=== PATIENT | female | born 2005 | race Caucasian/White ===

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

== ENCOUNTER 2024-01-20 15:22 | Emergency (ER) | payer OTHER, SELFPAY ==
[2024-01-20 15:30] VITALS: BP 154/67; PULSE 88; RESP 20; TEMP 37.2; O2SAT 98
--- NOTE | 2024-01-20 15:58 | ED.GENADULT ---
HPI - General Adult General Chief complaint: Ear Stated complaint: Right Ear Source: patient Mode of arrival: ambulatory Limitations: no limitations History of Present Illness HPI narrative: Patient presents for evaluation of right ear pain. Symptom onset about one week ago. Pain was initially mild but significantly worsened today. She has a history of recurrent ear infections and has chronic hearing deficits. She states she was recently treated for otitis externa on the left with otic abx. She states her current symptoms feel different, specifically like otitis media. She denies any fever, chills, nausea, sinus congestion, cough or sore throat. Related Data Allergies Allergy/AdvReac Type Severity Reaction Status Date / Time latex Allergy Rash Verified 01/20/24 15:38 Review of Systems Review of Systems: CONSTITUTIONAL: Denies fever, chills, or sweats. EYES: Denies visual changes, redness, or discharge. ENT: Reports right sided ear pain with chronic bilateral hearing deficits CARDIOVASCULAR: Denies chest pain, palpitations, or edema. RESPIRATORY: Denies cough or dyspnea. GASTROINTESTINAL: Denies abdominal pain, nausea, vomiting, or diarrhea. GENITOURINARY: Denies dysuria or hematuria. SKIN: Denies rash or itching. MUSCULOSKELETAL: Denies back pain, joint pain, or myalgia. NEUROLOGIC: Denies headache, numbness, dizziness, or weakness. PSYCHIATRIC: Denies anxiety or depression. [facility] Past Medical History Medical History ADHD (attention deficit hyperactivity disorder) Anxiety and depression Ear infection Hx of migraines Seasonal allergies Surgical History Surgical History No history of previous surgery Family History Family History Mother Family history non-contributory Other High cholesterol Social History Social History Smoking status: Never smoker Alcohol intake: never Substance use: never Living arrangements: with family Occupation/Education: student Gender identity (if verbalized by the patient): Female Spiritual care concerns: No Exam Narrative: GENERAL: Well-appearing, well-nourished, and in no acute distress. HEAD: Normocephalic, atraumatic. EYES: PERRLA and EOMI. ENT: Nares clear, no rhinorrhea or epistaxis. Mucous membranes moist. Oropharynx without tonsillar hypertrophy exudate or other lesions. Right tympanic membrane is erythematous and there is opacification of the membrane noted. There is also erythema to right ear canal without exudate. NECK: Supple. No adenopathy or masses. No carotid bruits or JVD CHEST: Clear to auscultation. No respiratory distress. No wheezes rales or rhonchi HEART: Regular rate and rhythm. No murmur heard. Normal peripheral pulses. ABDOMEN: Soft, nontender, nondistended, normal active bowel sounds. EXTREMITIES: Normal range of motion. No edema. SKIN: Warm, dry, no rash. NEURO: No focal deficits. Alert and oriented x3. PSYCH: Normal mood and affect. Course Course Emergency Course: This is a 18-year-old female who presented for evaluation of right-sided ear pain. She has evidence of otitis media on exam. Will discharge with Augmentin. She does have some erythema in the right ear canal so will also give her prescription for ofloxacin. She should follow up with primary care and go to the emergency department in the event that she has worsening symptoms. Patient in agreement with plan of care. Level of Care: Express Care Visit Vital Signs Vital signs: Vital Signs Temperature 37.2 C 01/20/24 15:30 Pulse Rate 88 01/20/24 15:30 Respiratory Rate 20 01/20/24 15:30 Blood Pressure 154/67 H 01/20/24 15:30 Pulse Oximetry 98 01/20/24 15:30 Oxygen Delivery Room Air 01/20/24 15:30
== END 2024-01-20 15:53 | disposition home or self-care (01) ==
PROVIDERS: Emergency Provider Nurse Practitioner
DX: H66.91 Otitis media, unspecified, right ear (principal)
CPT/HCPCS: 99213; G0463

== ENCOUNTER 2024-04-08 15:03 | Emergency (ER) | payer OTHER, SELFPAY ==
[2024-04-08 15:17] VITALS: BP 149/77; PULSE 85; RESP 16; TEMP 36.5; O2SAT 100
--- NOTE | 2024-04-08 15:49 | ED.SKABFB ---
HPI - Skin/Abscess/Foreign Bdy General Chief complaint: Skin/Abscess/Foreign Body Stated complaint: bump on back of neck causing pain Time Seen by Provider: 04/08/24 15:49 Source: patient Mode of arrival: ambulatory Limitations: no limitations History of Present Illness HPI narrative: 18 y/o female presented for complaint left ear pain and bump noted to the back of the neck for the past 5 days. States the bumps are fixed and tender, cause pain when she turns her head. also reports subjective fever and chills, and had a migraine for about week which is improved.. Denies ear drainage, tinnitus, dizziness nausea vomiting. Related Data Allergies Allergy/AdvReac Type Severity Reaction Status Date / Time latex Allergy Rash Verified 01/20/24 15:38 Review of Systems Review of Systems: CONSTITUTIONAL: Denies malaise, chills, or fever. EYES: Denies visual changes, redness, or discharge. ENT: Denies rhinorrhea, congestion, sinus pain, and sore throat. Reports ear pain CARDIOVASCULAR: Denies chest pain, palpitations, or edema. RESPIRATORY: Denies cough or dyspnea. GASTROINTESTINAL: Denies abdominal pain, nausea, vomiting, diarrhea SKIN: Denies rash or itching. MUSCULOSKELETAL: Denies myalgia. NEUROLOGIC: Denies headache. All systems reviewed & are unremarkable except as noted in HPI and below PMFSH Past Medical History Medical History ADHD (attention deficit hyperactivity disorder) Anxiety and depression Ear infection Hx of migraines Seasonal allergies Surgical History Surgical History No history of previous surgery Family History Family History Mother Family history non-contributory Other High cholesterol Social History Social History Smoking status: Never smoker Alcohol intake: never Substance use: never Living arrangements: with family Occupation/Education: student Gender identity (if verbalized by the patient): Female Spiritual care concerns: No Comments At time of signature, agree with nursing past medical, surgical, social and family history. There is no relevant family history pertinent to the presenting complaint Exam Narrative: GENERAL: Well-appearing EYES: PERRLA, conjunctivae clear ENT: Nares clear. Mucous membranes moist. right TM pearly hedrick with dull light reflex; Left TM erythematous, bulging and intact; canal not erythematous, no drainage no tragal tenderness. Oropharynx not erythematous without lesions. Tonsils enlarged 1+ without exudate, no drooling, no hoarseness, no trismus, uvula midline. NECK: Supple. full range of motion Left posterior cervical lymphadenopathy CHEST: Clear to auscultation, breath sounds equal. HEART: Regular rate and rhythm. No murmur heard. SKIN: Warm, dry NEURO: Alert and oriented x3. PSYCH: Normal mood and affect Course Course Emergency Course: Patient is aware of diagnosis, understands and agrees to treatment plan. Anticipatory guidance given. Patient agrees to follow-up as directed and is aware of reasons to seek care at the emergency department. Portions of this record may have been created with voice recognition software Level of Care: Express Care Visit Vital Signs Vital signs: Vital Signs Temperature 97.7 F 04/08/24 15:17 Pulse Rate 85 04/08/24 15:17 Respiratory Rate 16 04/08/24 15:17 Blood Pressure 149/77 H 04/08/24 15:17 Pulse Oximetry 100 04/08/24 15:17 Oxygen Delivery Room Air 04/08/24 15:17 Temperature 97.7 F 04/08/24 15:17 Pulse Rate 85 04/08/24 15:17 Respiratory Rate 16 04/08/24 15:17 Blood Pressure 149/77 H 04/08/24 15:17 Pulse Oximetry 100 04/08/24 15:17 Oxygen Delivery Room Air 04/08/24 15:17 Reviewed MDM - Skin/Abscess/Foreign Bdy MDM Narrative
== END 2024-04-08 16:05 | disposition home or self-care (01) ==
PROVIDERS: Emergency Provider Nurse Practitioner Family
DX: R59.1 Generalized enlarged lymph nodes (principal); H66.002 Acute suppurative otitis media without spontaneous rupture of ear drum, left ear
CPT/HCPCS: 99213; G0463

== ENCOUNTER 2024-04-23 19:29 | Emergency (ER) | payer OTHER, SELFPAY ==
--- NOTE | 2024-04-23 19:32 | ED.EAR ---
HPI - Ear Problem General Chief complaint: Ear Stated complaint: Ear pain Source: patient Mode of arrival: ambulatory Limitations: no limitations History of Present Illness HPI Narrative: 18-year-old female presented for complaint of bilateral ear pain for about 3 weeks. Patient was treated for left ear infection on 04/08 with Augmentin, but She denies significant improvement in the pain. Endorses mild right ear pain. States the ears drained 3 days ago. She denies tinnitus, dizziness, nausea vomiting, fevers or chills. Endorses frequent ear infections, states she cannot take Zyrtec due to the fact that she was on it for many consecutive years and is resistant. Patient took ibuprofen, last dose at midnight. MD Complaint: ear pain Related Data Allergies Allergy/AdvReac Type Severity Reaction Status Date / Time latex Allergy Rash Verified 04/23/24 19:40 Review of Systems Review of Systems: CONSTITUTIONAL: Denies malaise, chills, or fever. EYES: Denies visual changes, redness, or discharge. ENT: Denies rhinorrhea, congestion, sinus pain, and sore throat. Reports ear pain CARDIOVASCULAR: Denies chest pain, palpitations, or edema. RESPIRATORY: Denies cough or dyspnea. GASTROINTESTINAL: Denies abdominal pain, nausea, vomiting, diarrhea SKIN: Denies rash or itching. MUSCULOSKELETAL: Denies myalgia. NEUROLOGIC: Denies headache. All systems reviewed & are unremarkable except as noted in HPI and below PMFSH Past Medical History Medical History ADHD (attention deficit hyperactivity disorder) Anxiety and depression Ear infection Hx of migraines Seasonal allergies Surgical History Surgical History No history of previous surgery Family History Family History Mother Family history non-contributory Other High cholesterol Social History Social History Smoking status: Never smoker Alcohol intake: never Substance use: never Living arrangements: with family Occupation/Education: student Gender identity (if verbalized by the patient): Female Spiritual care concerns: No Comments At time of signature, agree with nursing past medical, surgical, social and family history. There is no relevant family history pertinent to the presenting complaint Exam Narrative: GENERAL: Well-appearing EYES: PERRLA, conjunctivae clear ENT: Nares clear. Mucous membranes moist. TMs pearly hedrick with dull light reflex and clear effusion bilaterally; no tragal tenderness. Oropharynx not erythematous without lesions. Tonsils enlarged 1+ and without exudate, no drooling, no hoarseness, no trismus, uvula midline. NECK: Supple. No lymphadenopathy CHEST: Clear to auscultation, breath sounds equal. HEART: Regular rate and rhythm. No murmur heard. SKIN: Warm, dry, no rash. NEURO: Alert and oriented x3. PSYCH: Normal mood and affect Course Course Emergency Course: Patient is aware of diagnosis, understands and agrees to treatment plan. Anticipatory guidance given. Patient agrees to follow-up as directed and is aware of reasons to seek care at the emergency department. Portions of this record may have been created with voice recognition software Level of Care: Express Care Visit Vital Signs Vital signs: Vital Signs Temperature 97.2 F L 04/23/24 19:37 Pulse Rate 89 04/23/24 19:37 Respiratory Rate 20 04/23/24 19:37 Blood Pressure 162/99 H 04/23/24 19:37 Pulse Oximetry 99 04/23/24 19:37 Oxygen Delivery Room Air 04/23/24 19:37 Temperature 97.2 F L 04/23/24 19:40 Pulse Rate 89 04/23/24 19:40 Respiratory Rate 20 04/23/24 19:40 Blood Pressure 162/99 H 04/23/24 19:40 Pulse Oximetry 99 04/23/24 19:40 Oxygen Delivery Room Air 04/23/24 19:40 Reviewed Medical Decis
[2024-04-23 19:37] VITALS: BP 162/99; PULSE 89; RESP 20; TEMP 36.2; O2SAT 99
[2024-04-23 19:40] VITALS: BP 162/99; PULSE 89; RESP 20; TEMP 36.2; O2SAT 99
== END 2024-04-23 19:55 | disposition home or self-care (01) ==
PROVIDERS: Emergency Provider Nurse Practitioner Family
DX: H65.03 Acute serous otitis media, bilateral (principal)
CPT/HCPCS: 99213; G0463

== ENCOUNTER 2024-07-01 13:49 | Emergency (ER) | payer OTHER, SELFPAY ==
[2024-07-01 13:54] VITALS: BP 137/82; PULSE 87; RESP 20; TEMP 36.3; O2SAT 99
--- NOTE | 2024-07-01 14:05 | ED.URI ---
HPI - URI/Sore Throat General Chief Complaint: Upper Respiratory Infection Stated Complaint: Sore Throat/Ear Pain/Headache Source: patient and RN notes reviewed Mode of arrival: ambulatory Limitations: no limitations History of Present Illness HPI Narrative: 18 y/o female presented for c/o sore throat, bilateral ear pain and headache for over one week. Woke this morning with worse throat pain and hoarse voice. Reports fever 101.8 yesterday. Denies sob, wheezing, n/v/d. MD elicited complaint: cough Related Data Allergies Allergy/AdvReac Type Severity Reaction Status Date / Time latex Allergy Rash Verified 07/01/24 14:00 Review of Systems Review of Systems: CONSTITUTIONAL: denies malaise, chills, sweats, fever EYES: Denies visual changes, redness, or discharge ENT: Reports sinus pain, otalgia, sore throat CARDIOVASCULAR: Denies chest pain, palpitations, edema RESPIRATORY: Reports cough, post nasal drainage. Denies dyspnea GASTROINTESTINAL: Denies abdominal pain, nausea, vomiting, diarrhea SKIN: Denies rash or itching MUSCULOSKELETAL: denies myalgia NEUROLOGIC: Denies headache PMFSH Past Medical History Medical History ADHD (attention deficit hyperactivity disorder) Anxiety and depression Ear infection Hx of migraines Seasonal allergies Surgical History Surgical History No history of previous surgery Family History Family History Mother Family history non-contributory Other High cholesterol Social History Social History Smoking status: Never smoker Alcohol intake: never Substance use: never Living arrangements: with family Occupation/Education: student Gender identity (if verbalized by the patient): Female Spiritual care concerns: No Exam Narrative: GENERAL: well-appearing EYES: conjunctivae clear ENT: Mucous membranes moist. bilateral TM erythematous, bulging and intact; canal not erythematous, no drainage no tragal tenderness. mildly hoarse voice. Oropharynx not erythematous without lesions or exudate, no drooling, no trismus, uvula midline. No tripod positioning, muffled voice, soft palate or pharyngeal wall bulging NECK: Supple. No lymphadenopathy CHEST: Clear to auscultation, breath sounds equal. No wheezing, rhonchi, rales, or stridor. No respiratory distress, speaks in full sentences. HEART: Regular rate and rhythm. No murmur heard. SKIN: Warm, dry, no rash. NEURO: Alert and oriented x3. PSYCH: Normal mood and affect Course Course Emergency Course: Patient is aware of diagnosis, understands and agrees to treatment plan. Anticipatory guidance given. Patient agrees to follow-up as directed and is aware of reasons to seek care at the emergency department. Portions of this record may have been created with voice recognition software Level of Care: Express Care Visit Vital Signs Vital signs: Vital Signs Temperature 97.3 F L 07/01/24 13:54 Pulse Rate 87 07/01/24 13:54 Respiratory Rate 20 07/01/24 13:54 Blood Pressure 137/82 07/01/24 13:54 Pulse Oximetry 99 07/01/24 13:54 Oxygen Delivery Room Air 07/01/24 13:54 Temperature 97.3 F L 07/01/24 13:54 Pulse Rate 87 07/01/24 13:54 Respiratory Rate 20 07/01/24 13:54 Blood Pressure 137/82 07/01/24 13:54 Pulse Oximetry 99 07/01/24 13:54 Oxygen Delivery Room Air 07/01/24 13:54 reviewed MDM - URI/Sore Throat MDM Narrative Medical decision making narrative: Discussed physical exam findings. Advised supportive measures and signs/symptoms to go to the ER. Pt is appropriate for outpt treatment and f/u. Differential Diagnosis Differential diagnosis: Likely upper respiratory infection, sinusitis and viral infection Discharge Plan Discharge Clinical Impression:
== END 2024-07-01 14:15 | disposition home or self-care (01) ==
PROVIDERS: Emergency Provider Nurse Practitioner Family
DX: H66.93 Otitis media, unspecified, bilateral (principal)
CPT/HCPCS: 99213; G0463

== ENCOUNTER 2024-08-10 12:12 | Emergency (ER) | payer OTHER, SELFPAY ==
[2024-08-10 12:21] VITALS: BP 158/72; PULSE 77; RESP 16; TEMP 36.6; O2SAT 100
--- NOTE | 2024-08-10 13:19 | ED_ITS ---
HPI - URI/Sore Throat General Chief Complaint: Upper Respiratory Infection Stated Complaint: Ear Pain/Sore Throat Time Seen by Provider: 08/10/24 13:00 Source: patient, RN notes reviewed and old records reviewed Mode of arrival: ambulatory Limitations: no limitations History of Present Illness HPI Narrative: 19 year old female who presents to [facility] care with complaints of bilateral ear pain and cough for the past week with complaints of sore throat for the past 3 days. Patient reports history of chronic ear infection since age 10 has seen ENT in the past . Patient reports that ears are throbbing, denies any drainage from ears or any decreased hearing or tinnitus. Patient reports that she has taken some Ibuprofen for her symptoms and also used cough medication. Patient reports no known fevers MD elicited complaint: cough, sore throat and other (ear pain) Onset (ago): week(s) (1 week ear pain and cough 3 days sore throat) Consistency: constant Pain scale (0-10): 6 Able to tolerate fluids by mouth: Yes Treatments prior to arrival: ibuprofen and other (cough medication) Related Data Allergies Allergy/AdvReac Type Severity Reaction Status Date / Time latex Allergy Unknown Rash Verified 08/10/24 12:48 Review of Systems Review of Systems: CONSTITUTIONAL: Denies malaise, chills, sweats, or fever. EYES: Denies visual changes, redness, or discharge. ENT: Reports rhinorrhea, congestion,no sinus pain,positive for bilateral otalgia and sore throat. CARDIOVASCULAR: Denies chest pain, palpitations, or edema. RESPIRATORY: Reports cough.? Denies dyspnea. GASTROINTESTINAL: Denies abdominal pain, nausea, vomiting, diarrhea SKIN: Denies rash or itching. MUSCULOSKELETAL: Denies myalgia. NEUROLOGIC: Denies headache. All systems reviewed & are unremarkable except as noted in HPI and below PMFSH Past Medical History Medical History (Updated 08/11/24 @ 17:24 by Faby Atkins NP) ADHD (attention deficit hyperactivity disorder) Anxiety and depression Ear infection Endometriosis Hx of migraines Panic disorder Seasonal allergies Surgical History Surgical History No history of previous surgery Family History Family History Mother Family history non-contributory Other High cholesterol Social History Social History Smoking status: Never smoker Alcohol intake: never Substance use: never Living arrangements: with family Occupation/Education: student Gender identity (if verbalized by the patient): Female Spiritual care concerns: No Comments At time of signature, agree with nursing past medical, surgical, social and family history. There is no relevant family history pertinent to the presenting complaint Exam Narrative: GENERAL: Well-appearing, well-nourished, and in no acute distress. HEAD: Normocephalic EYES: PERRLA, conjunctivae clear ENT: Nares clear, turbinates edematous and erythematous, clear discharge. Mucous membranes moist. TM pearly hedrick with dull light reflex bilaterally positive for tragal tenderness, red of bilateral ear canals with no drainage noted.. Oropharynx erythematous without lesions. Tonsils not enlarged and without exudate, no drooling, no hoarseness, no trismus, uvula midline.some post nasal drainage. NECK: Supple. No lymphadenopathy CHEST: Clear to auscultation, breath sounds equal. No wheezing, rhonchi, rales, or stridor. No respiratory distress, speaks in full sentences.SAO2 100% on room air HEART: Regular rate and rhythm. No murmur heard. SKIN: Warm, dry, no rash. NEURO: Alert and oriented x3. PSYCH: Normal mood and affect Course Course Emergency Course: Patient is aware of diagnosis, understands and agrees to treatment plan.? Anticipatory guidance given.? Patient agrees to follow-up as directed and is aware of reasons to seek care at the emergency department. Portions of this record may have been created with voice recognition software Level of Care: Express Care Visit Vital Signs Vital signs: Vital Signs Temperature 36.6 C 08/10/24 12:21 Pulse Rate 77 08/10/24 12:21 Respiratory Rate 16 08/10/24 12:21 Blood Pressure 158/72 H 08/10/24 12:21 Pulse Oximetry 100 08/10/24 12:21 Temperature 36.6 C 08/10/24 12:21 Pulse Rate 77 08/10/24 12:21 Respiratory Rate 16 08/10/24 12:21 Blood Pressure 158/72 H 08/10/24 12:21 Pulse Oximetry 100 08/10/24 12:21 Reviewed MDM - URI/Sore Throat MDM Narrative Medical decision making narrative: Differential diagnosis considered: Lowery virus, strep pharyngitis, allergic rhinitis, upper respiratory tract infection, sinusitis, rhinosinusitis, nasopharyngitis. viral pharyngitis, otitis media, otitis externa, pneumonia, bronchitis, viral cough syndrome, viral syndrome, and influenza.? Exam findings show no acute concerns or changes; patient is non-toxic appearing and is in no distress.? Patient is appropriate for outpatient treatment and follow-up. Differential Diagnosis Differential diagnosis: Likely upper respiratory infection, otitis media, pharyngitis and other (strep pharyngitis, otitis externa) Medical Records Attestation: I reviewed the patient's medical records. Lab Data Attestation: I reviewed the patient's lab results. Lab results narrative: strep screen negative culture sent Labs: Lab Results 08/10/24 Range/Units 13:23 POC Grp A Strep Screen Negative (Negative) Critical Care Time Critical Care Time Critical Care Time: No Discharge Plan Discharge Clinical Impression: Otitis externa Patient Disposition: Home, Self-Care Condition: Stable Instructions: Pharyngitis (ED), Swimmer's Ear (ED) Additional Instructions: Increase fluids especially juices and water [id number] cough and cold medicine of your choice for your symptoms Tylenol or ibuprofen for any fever pain Zyrtec Claritin or [place] daily Ear drops as prescribed complete all doses heat to the face 20-30 minutes 4-6 times a day for pain Salt water gargles, throat lozenges or throat sprays as desired Your strep test today was negative. A throat culture will be sent to the laboratory for further testing. IF the test is positive, you will receive a phone call within 48 hours and an appropriate antibiotic will be initiated at that time. If your symptoms persist, change or worsen significantly before you can contact your personal physician then please, without delay, go to the emergency department for further evaluation. Follow-up with PCP in 7-10 days or sooner if needed Follow up with PCP soon in regards to your blood pressure which is elevated above threshold for referral. Blood pressure above 120/80 may indicate pre- hypertension. 158/72 Prescriptions: New ofloxacin 0.3 % drops 5 drp EACH EAR Q12H 7 Days Qty: 10 0RF Follow-up/Referrals: PHYSICIAN,ST[employer] YIELD ENGINEER [Primary Care Provider] - Time of Disposition: 13:24 Quality Claire Coma Scale Eyes: Open Verbal: Oriented and Alert Motor: Follows Commands Claire Coma Total Score: 15
[2024-08-10 13:24] LABS: EDSTREPNEGPOS1 Negative (Negative)
== END 2024-08-10 13:25 | disposition home or self-care (01) ==
PROVIDERS: Emergency Provider Registered Nurse
DX: H60.93 Unspecified otitis externa, bilateral (principal); N80.9 Endometriosis, unspecified
CPT/HCPCS: 87081; 87880; 99213; G0463

== ENCOUNTER 2024-09-03 15:38 | Emergency (ER) | payer OTHER, SELFPAY ==
[2024-09-03 15:59] VITALS: BP 146/73; PULSE 82; RESP 19; TEMP 36.6; O2SAT 96
--- NOTE | 2024-09-03 16:05 | ED_ITS ---
HPI - URI/Sore Throat General Chief Complaint: Upper Respiratory Infection Stated Complaint: Ear Pain/Sinus Pain Time Seen by Provider: 09/03/24 16:05 Source: patient, RN notes reviewed and old records reviewed Mode of arrival: ambulatory Limitations: no limitations History of Present Illness HPI Narrative: 19-year-old female to Express Care with complaint left ear pain for 10 days. Patient endorses chronic history both inner and outer ear infections. Patient states that she saw an ENT many years ago and had a negative experience so did not return. Patient denies fever, drainage from ear, headache, decreased hearing, Q-tip use. Patient resting comfortably in exam room in no acute distress. Related Data Allergies Allergy/AdvReac Type Severity Reaction Status Date / Time latex Allergy Unknown Rash Verified 09/03/24 15:51 Review of Systems Review of Systems: All systems reviewed & are unremarkable except as noted in HPI and below Constitutional: Constitutional: Reports no additional constitutional complai nts Eyes: Eyes: Reports no additional eye complaints ENT: Reports as per HPI and Reports otalgia ( Left) Cardiovascular: Cardiovascular: Reports no additional cardiovascular complaints, Denies chest pain and Denies dyspnea Respiratory: Respiratory: Reports no additional respiratory complaints, Denies cough and Denies dyspnea Musculoskeletal: Musculoskeletal: Reports no additional musculoskeletal complaints Neurologic: Reports system reviewed and no additional complaints, except as documented Psychiatric: Psychiatric: Reports no additional psychiatric complaints PMFSH Past Medical History Medical History ADHD (attention deficit hyperactivity disorder) Anxiety and depression Ear infection Endometriosis Hx of migraines Panic disorder Seasonal allergies Surgical History Surgical History No history of previous surgery Family History Family History Mother Family history non-contributory Other High cholesterol Social History Social History Smoking status: Never smoker Alcohol intake: never Substance use: never Living arrangements: with family Occupation/Education: student Gender identity (if verbalized by the patient): Female Spiritual care concerns: No Comments At the time of my signature, I reviewed and agree with the nursing past medical, surgical, social, and family history. There is no relevant family history pertinent to the patient complaint. Exam Const: General: cooperative, comfortable, no acute distress, alert, well groomed, well nourished and obese Nutritional Appearance: well nourished Orientation/consciousness: patient oriented x3 Limitations: no limitations HENMT: Head: normal to inspection Ears: external ears normal and Abnormal EAC present erythema bilateral, edema bilateral and EAC tenderness bilateral Face/Nose/Sinus: Normal external nose present, Normal nares present, normal facial exam, No erythema and No edema Face and sinus: normal facial exam, no erythema and no edema Mouth: Yes Normal oral and palatal mucosa present Eyes: General: appearance normal, both eyes and all related structures Neck: Neck: normal visual inspection, full ROM and no meningeal signs Lymphatic: no lymphadenopathy noted and no lymphedema noted Chest: Chest palpation & inspection: normal inspection of the chest Resp: Effort & Inspection: normal respiratory effort and able to speak in complete sentences Auscultation: clear to auscultation bilaterally Cardio: Jugular venous distension: no JVD Rate: regular rate Rhythm: regular rhythm Back/Spine/Pelvis: Cervical Spine: cervical ROM normal Skin: General skin exam: normal color, no rashes or lesions noted and turgor normal Neuro: General: patient oriented x3, gait normal, moves all extremities and no meningeal signs Speech: normal speech Gait exam (Neuro): Normal gait present Extrem: General: normal to inspection, full ROM and capillary refill normal Psych: Appearance: grossly normal and well kempt Course Course Emergency Course: Some parts of this dictation were generated by voice recognition software and may contain typographical and/or grammatical inaccuracies. Level of Care: Express Care Visit Vital Signs Vital signs: Vital Signs Temperature 36.6 C 09/03/24 15:59 Pulse Rate 82 09/03/24 15:59 Respiratory Rate 09/03/24 15:59 Blood Pressure 146/73 H 09/03/24 15:59 Pulse Oximetry 96 09/03/24 15:59 Oxygen Delivery Room Air 09/03/24 15:59 Temperature 36.6 C 09/03/24 15:59 Pulse Rate 82 09/03/24 15:59 Respiratory Rate 09/03/24 15:59 Blood Pressure 146/73 H 09/03/24 15:59 Pulse Oximetry 96 09/03/24 15:59 Oxygen Delivery Room Air 09/03/24 15:59 reviewed MDM - URI/Sore Throat MDM Narrative Medical decision making narrative: 19-year-old female to Express Care with complaint left ear pain for 10 days. Patient endorses chronic history both inner and outer ear infections. Patient states that she saw an ENT many years ago and had a negative experience so did not return. Patient denies fever, drainage from ear, headache, decreased hearing, Q-tip use. Patient resting comfortably in exam room in no acute distress. on exam, bilateral EAC tenderness, erythema, edema. Consistent with bilateral otitis externa. Extensive conversation with patient regarding importance of following up with ENT. Referral given. Patient is sitting comfortably in exam room nontoxic in appearance. Patient appropriate for outpatient treatment and follow-up. Discharge instructions reviewed with patient, as well as provided in writing per nursing staff. The instructions also include specific and strict return/GO TO THE ER as well as f/u information. All questions have been answered, and the patient deny any further questions with discharge and discharge plan. Some parts of this dictation were generated by voice recognition software and may contain typographical and/or grammatical inaccuracies. Differential Diagnosis Differential diagnosis: Likely upper respiratory infection, croup, otitis media, sinusitis, viral infection, bronchitis, influenza and pharyngitis Discharge Plan Discharge Clinical Impression: Bilateral otitis externa Patient Disposition: Home, Self-Care Condition: Stable Instructions: Antibiotic Form Additional Instructions: Please finish entire course of antibiotic treatment. Please use attached referral information to follow up with ENT -Alternate Tylenol and Motrin per package directions for fever or pain. -Antihistamine medication such as Benadryl at night and Zyrtec/Claritin/[place] during the day can help improve symptoms. -Use Flonase twice a day for 5 days then daily to help reduce the inflammation and dry up your sinuses. -You can also use Sudafed or Mucinex. Be sure to drink plenty of water with these medications at least 8 ounces with every dose and it is important to drink 8 to 10 glasses of water per day. Water is a natural decongestant -Eat and drink things that are easy to swallow, like tea or soup, or popsicles. -Oral rinses such as: Salt water gargles and/or may use topical anesthetic (eg. Chloraseptic spray) or lozenges to relieve dryness or throat pain). -Frequent hand washing or hand roofing sales representative is one of the best ways to prevent spread of infection. -Using a vaporizer or humidifier at night will also help thin secretions and help with coughing up phlegm. -Follow up with primary care provider in 2-3 days if condition is not improving; or seek ER visit if you have trouble breathing, cannot drink enough fluids, have muffled voice, difficulty opening your mouth, or severe swelling. Prescriptions: New amoxicillin 875 mg tablet 875 mg PO Q12H Qty: 20 0RF fluconazole [Diflucan] 100 mg tablet 100 mg PO DAILY Qty: 2 0RF ciprofloxacin-dexamethasone 0.3-0.1 % drops,suspension 4 drp EACH EAR Q12H 7 Days Qty: 7.5 0RF No Action ofloxacin 0.3 % drops 5 drp EACH EAR Q12H 7 Days Qty: 10 0RF Follow-up/Referrals: John Martines MD [Physician] - PHYSICIAN,[facility] [employer] [facility] [Primary Care Provider] - Stand Alone Forms: Work/School Release IP
== END 2024-09-03 16:24 | disposition home or self-care (01) ==
PROVIDERS: Emergency Provider Nurse Practitioner Family
DX: H60.93 Unspecified otitis externa, bilateral (principal)
CPT/HCPCS: 99213; G0463

== ENCOUNTER 2024-11-06 15:57 | Emergency (ER) | payer OTHER, SELFPAY ==
[2024-11-06 16:03] VITALS: BP 151/81; PULSE 99; RESP 16; TEMP 36.6; O2SAT 100
--- NOTE | 2024-11-06 16:55 | ED_ITS ---
HPI - General Adult General Chief complaint: Upper Respiratory Infection Stated complaint: Ear Pain/Sinus Pain Source: patient and family Mode of arrival: ambulatory Limitations: no limitations History of Present Illness HPI narrative: Patient presents for evaluation of bilateral ear pain for last 5 days. She has a history of otitis media and otitis externa. She has not been on abx as of late per her reports. She has some chronic hearing loss, not worse as of late. She reports a small amount of drainage from right ear. No fever, chills, nausea, vomiting, sore throat, cough, shortness of breath. No recent sick contacts to her knowledge. Related Data Home Medications ?Medication ?Instructions ?Recorded ?Confirmed ?Last Taken ?Type drospirenone (contraceptive) 4 mg 4 mg PO DAILY 11/06/24 Unknown History (28) tablet (Slynd) Allergies Allergy/AdvReac Type Severity Reaction Status Date / Time latex Allergy Unknown Rash Verified 11/06/24 16:37 Review of Systems Review of Systems: CONSTITUTIONAL: Denies fever, chills, or sweats. EYES: Denies visual changes, redness, or discharge. ENT: Reports chronic hearing loss, not worse as of late. Reports bilateral ear pain and a small amount of drainage from the right ear. Denies sore throat CARDIOVASCULAR: Denies chest pain, palpitations, or edema. RESPIRATORY: Denies cough or dyspnea. GASTROINTESTINAL: Denies abdominal pain, nausea, vomiting, or diarrhea. GENITOURINARY: Denies dysuria or hematuria. SKIN: Denies rash or itching. MUSCULOSKELETAL: Denies back pain, joint pain, or myalgia. NEUROLOGIC: Denies headache, numbness, dizziness, or weakness. PSYCHIATRIC: Denies anxiety or depression. [facility] Past Medical History Medical History Endometriosis Panic disorder Anxiety and depression ADHD (attention deficit hyperactivity disorder) Hx of migraines Ear infection Seasonal allergies Surgical History Surgical History No history of previous surgery Family History Family History Mother Family history non-contributory Other High cholesterol Social History Social History (Reviewed 11/06/24 @ 17:01 by Sharan Zimmerman, [facility], [place] Smoking status: Never smoker Alcohol intake: never Substance use: never Living arrangements: with family Occupation/Education: student Gender identity (if verbalized by the patient): Female Spiritual care concerns: No Exam Narrative: GENERAL: Well-appearing, well-nourished, and in no acute distress. HEAD: Normocephalic, atraumatic. EYES: PERRLA and EOMI. ENT: Nares clear, no rhinorrhea or epistaxis. Mucous membranes moist. Oropharynx without tonsillar hypertrophy exudate or other lesions. Bilateral ear canals are erythematous. Bilateral tympanic membrane erythema. Tympanic membranes are intact bilaterally NECK: Supple. No adenopathy or masses. No carotid bruits or JVD CHEST: Clear to auscultation. No respiratory distress. No wheezes rales or rhonchi HEART: Regular rate and rhythm. No murmur heard. Normal peripheral pulses. ABDOMEN: Soft, nontender, nondistended, normal active bowel sounds. EXTREMITIES: Normal range of motion. No edema. SKIN: Warm, dry, no rash. NEURO: No focal deficits. Alert and oriented x3. PSYCH: Normal mood and affect. Course Course Emergency Course: This is a 19-year-old female who presented for evaluation of bilateral ear pain. She has evidence of otitis media and externa on exam. Will treat with cefdinir and ofloxacin. She requested a prescription for Diflucan after her antibiotics. Increase hydration. [id number] agents for symptom management. Follow up with primary provider. Go to the ER for worsening symptoms. Patient in agreement with plan of care. Level of Care: Express Care Visit Vital Signs Vital signs: Vital Signs Temperature 36.6 C 11/06/24 16:03 Pulse Rate 99 11/06/24 16:03 Respiratory Rate 16 11/06/24 16:03 Blood Pressure 151/81 H 11/06/24 16:03 Pulse Oximetry 100 11/06/24 16:03 Oxygen Delivery Room Air 11/06/24 16:03 Temperature 36.6 C 11/06/24 16:03 Pulse Rate 99 11/06/24 16:03 Respiratory Rate 16 11/06/24 16:03 Blood Pressure 151/81 H 11/06/24 16:03 Pulse Oximetry 100 11/06/24 16:03 Oxygen Delivery Room Air 11/06/24 16:03 Medical Decision Making Vital Signs Vital Signs: Vital Signs Temperature 36.6 C 11/06/24 16:03 Pulse Rate 99 11/06/24 16:03 Respiratory Rate 16 11/06/24 16:03 Blood Pressure 151/81 H 11/06/24 16:03 Pulse Oximetry 100 11/06/24 16:03 Oxygen Delivery Room Air 11/06/24 16:03 Temperature 36.6 C 11/06/24 16:03 Pulse Rate 99 11/06/24 16:03 Respiratory Rate 16 11/06/24 16:03 Blood Pressure 151/81 H 11/06/24 16:03 Pulse Oximetry 100 11/06/24 16:03 Oxygen Delivery Room Air 11/06/24 16:03 Discharge Plan Discharge Clinical Impression: Bilateral otitis media, Bilateral otitis externa Patient Disposition: Home, Self-Care Condition: Stable Instructions: Antibiotic Form, Ear Infection (ED) Patient Language: Romansh Prescriptions: New cefdinir 300 mg capsule 300 mg PO Q12H Qty: 20 0RF ofloxacin 0.3 % drops 10 drp EACH EAR DAILY 7 Days Qty: 10 0RF fluconazole 150 mg tablet 150 mg PO ONCE Qty: 1 0RF Rx Instructions: as a single dose No Action Slynd 4 mg (28) tablet 4 mg PO DAILY Follow-up/Referrals: Penny Obrien DO [Physician] - Time of Disposition: 16:54
--- OUTSIDE RECORDS SUMMARY | 2024-11-08 03:08 | XMS_ITS | Encounter Summary ---
Author Organization [facility] Address [address] [place] [address] Phone Care Team Providers Care Digital Print Operator Name Role Phone Coleman Frank MD Primary Care Provider + [phone] Amy, Physician Primary Care Provider [phone] Coleman Frank MD Primary Care Provider + [phone] Kelsey Soria MD Primary Care Provider + [phone] No, Physician Primary Care Provider [phone] Encounter Details Date Type Department Care Team (Late st Contact Info) Description 06/23/2017 Orders Only [facility] [address] [place] [address] Coleman Frank MD [address] [address] [place] [id number] Elevated hemoglobin A1c (Primary Dx); Obesity peds (BMI >=95 percentile) Social History Tobacco Use Types Packs/Day Years Used Date Smoking Tobacco: Smoker, Current Status Unknown Alcohol Use Standard Drinks/Week Comments No 0 (1 standard drink = 0.6 oz pur e alcohol) Comments Unknown Sex and Gender Information Value Date Recorded Sex Assigned at Not on file Legal Sex Female 11:54 AM RECORDIST CHIEF Gender Identity Not on file Sexual Orientation Not on file documented as of this encounter Plan of Treatment Not on file documented as of this encounter Visit Diagnoses Diagnosis Elevated hemoglobin A1c- Primary Other abnormal blood chemistry Obesity peds (BMI >=95 percentile) documented in this encounter Additional Health Concerns Infection Onset Date Last Indicated Resolved Time COVID: Suspected 2021 2021 2021 8:29 AM CDT COVID: Suspected 2021 2021 07/18/2021 5:52 AM CDT documented as of this encounter Care Teams Digital Print Operator Relationship Specialty Start Date End Date Coleman Frank MD [address] [place] [id number] PCP - General 01/13/17 03/17/20 Amy, Physician PCP - General 03/18/20 10/26/21 Coleman Frank MD [address] [place] [id number] PCP - General 10/27/21 03/17/22 Kelsey Soria MD PCP - General Family Practice 03/18/22 09/02/23 Amy, Physician PCP - General 09/03/23 documented as of this encounter
--- OUTSIDE RECORDS SUMMARY | 2024-11-08 03:08 | XMS_ITS | Referral Summary ---
Author Organization [facility] [address] Address [address] [place] [address] Phone Care Team Providers Care Car Pincher Name Role Phone No, Physician Primary Care Provider [phone] Encounters Date Type Department Care Team Description 10/29/2024 Orders Only [facility] [address] [place] [address] Floor [address] [place] [phone] Ria Edwards RN 10/25/2024 10:15 AM PILE DRIVER Office Visit [facility] [address] [place] [address] Floor [address] [place] [phone] Galina Ding MD Endometriosis (Primary Dx); Irregular periods; Pelvic and perineal pain 09/09/2024 1:08 PM PILE DRIVER - 09/09/2024 8:28 PM PILE DRIVER Emergency [facility] [place] [address] Jeannette Hall MD Anderson, Anne Marie, MD Endometriosis (Primary Dx) Discharge Disposition: Discharge to home or self care from Last 3 Months Allergies Active Allergy Reactions Criticality Noted Date Comments Chlorine Hives Medium 06/08/2022 Latex Rash Medium 06/08/2022 [place] Butter Hives Medium 06/08/2022 Medications fluticasone propionate (FLONASE) 50 mcg/actuation nasal spray Administer 2 sprays into each nostril daily 3 each 4 06/10/20 22 Active Additional Information Patient not taking.Reported on 08/16/2022 cetirizine (ZyrTEC) 10 mg tablet Take 1 tablet (10 mg total) by mouth daily 30 tablet 03/25/20 22 Active Additional Information Patient not taking.Reported on 08/16/2022 ciprofloxacin-dex AMETHasone (CIPRODEX) otic suspensionIndicat ions:Acute otitis externa of left ear, unspecified type Administer 4 drops into the left ear 2 (two) times a day 7.5 mL 06/08/20 22 Active Additional Information Patient not taking.Reported on 08/16/2022 clotrimazole 1 % cream Apply topically 2 (two) times a day 30 g 09/04/20 23 Active drospirenone, contraceptive, (SLYND) tablet tablet Take 1 each (4 mg total) by mouth daily 84 tablet 3 10/29/19 25 Active norethindrone (MICRONOR) 0.35 mg tabletIndications : Contraception Take 1 tablet (0.35 mg total) by mouth daily 28 tablet 12 07/01/20 22 025 Discontin ued(Thera py completed ) drospirenone, contraceptive, (SLYND) tablet tablet Take 1 each (4 mg total) by mouth daily 84 tablet 3 10/25/19 25 025 Discontin ued(Reord er) Active Problems Problem Noted Date Diagnosed Date Annual physical exam 08/16/2022 Assessment & Plan (08/16/2022 2:30 PM CDT): Doing well. BMI:52.9 (Obese) Routine labs ordered - Up to date Preventative Screening Due: None Dietary and exercise recommendations given today. Recommend exercise at least 30 minutes moderate to vigorous exercise and some strength training most days of the week. (minimum 150 minutes weekly) Discussed recommendations and increasing fruits and vegetables Vaccines due - HPV and influenza vacc recommended RTC annually for f/u Essential hypertension 08/16/2022 Assessment & Plan (08/16/2022 2:33 PM CDT): Mildly elevated again in office today. Goal <130/80. - recommend starting medication for hypertension. Chlorthalidone 12.5 mg p.o. daily. Risks benefits and alternatives discussed. Patient declined starting medication at this time. States she has a fear of blood pressure medication as her brother secondary to interaction with blood pressure medication and a med that was given while he was hospitalized. Additional counseling provided discussing long-term benefits of treating hypertension in addition to the potential risks of it going untreated. Patient still declined starting blood pressure medication -will continue low salt diet and work on weight loss. Will continue to monitor this intermittently at follow-up RTC 3 months Class 3 severe obesity with serious comorbidity and body mass index (BMI) of 50.0 to 59.9 in adult 08/16/2022 Hypertriglyceridemia 06/28/2022 Assessment & Plan (06/28/2022 5:55 PM CDT): Mildly elevated. Discussed with patient today. Counseled on diet/exercise. Will monitor routinely Referred otalgia of both ears 06/24/2022 Assessment & Plan (06/24/2022 3:19 PM CDT): TMJ dysfunction discussed and handout provided Dental contact provided Sensorineural hearing loss (SNHL) of both ears 0 06/24/2022 Assessment & Plan (06/24/2022 3:19 PM CDT): Hearing test at [facility] Acute otitis externa of left ear 06/08/2022 Assessment & Plan (06/08/2022 4:08 PM CDT): Presents c/o bilateral ear pain worse over the last 3 days. No hearing changes or sinus issues. Has appointment with ENT on 06/24/22 for chronic ear pain. Has not been using Flonase as directed. Small erythematous swollen area to bottom of Left EAC, exam otherwise unremarkable. Rxd Ciprodex drops as directed. Continue Flonase. Encouraged to clean ear buds with rubbing alcohol frequently. Keep follow up with ENT. Call with any changes or concerns. Ear pain, bilateral 03/18/2022 Assessment & Plan (06/24/2022 3:19 PM CDT): Suspect referred otalgia TMJ dysfunction discussed and handout provided Dental contact provided Assessment & Plan (03/18/2022 1:12 PM CDT): Recurrent. Records requested from outside facility. -restart Flonase and Zyrtec daily -refer to ENT Menorrhagia with regular cycle 03/18/2022 Assessment & Plan (03/18/2022 1:30 PM CDT): - Discussed using a scheduled NSAID 1-2 days prior to started menses and monitoring for improvement in pain and heaviness in menses over time -also discussed the possibility of using oral contraception to help with menorrhagia. Patient may need pelvic ultrasound to eval for uterine fibroids, thicken endometrium etc -will referred to jewel blocker and sawyer for evaluation and treatment Elevated blood-pressure read ing without diagnosis of hypertension 03/18/2022 Assessment & Plan (06/28/2022 5:57 PM CDT): Minimally elevated in office today.(also noted one other time) Goal <130/80. Will continue to monitor. - Continue low salt diet and work on weight loss. Assessment & Plan (03/18/2022 1:10 PM CDT): Mildly elevated in office today. No hx of HTN - Start DASH diet. - Home BP monitoring x2-4 weeks - Continue to work on weight loss - F/u with home BP cuff in 4 weeks for re-eval Non-recurrent acute serous otitis media of both ears 10/22/2021 Slow transit constipation 06/06/2018 Dysfunction of both eustachian tubes 01/01/2018 Viral upper respiratory tract infection 09/15/20 17 Left ear pain 09/15/2017 Post traumatic stress disorder (PTSD) 09/12/2017 Dysfunction of right eustachian tube 07/18/2017 Intractable migraine without aura and without status migrainosus 06/23/2017 Overview (06/23/2017): 03-06-16 [facility] ER (lips & fingers numb) ibuprofen, 06-23-17 occurring more freq 3- 4x/week - FERNANDEZ diary and f/u 4 weeks Healthcare maintenance 06/23/2017 Overview (06/23/2017): 12/21/16 TSH 2.8, A1C 5.9, Chol 206, Trig 165, LDL 134 Otitis media 01/05/2017 Overview (03/10/2017): Otitis media Adiposity 12/21/2016 Overview (03/10/2017): Obesity Resolved Problems Problem Noted Date Diagnosed Date Resolved Date Class 3 severe obesity witho ut serious comorbidity with body mass index (BMI) of 50.0 to 59.9 in adult 06/28/2022 08/16/2022 Assessment & Plan (06/28/2022 5:54 PM CDT): BMI:53.9 (Obese) Dietary and exercise recommendations given today. Recommend exercise at least 30 minutes moderate to vigorous exercise and some strength training most days of the week. (minimum 150 minutes weekly) Immunizations Name Administration Dates Next Due DTaP 06/30/2009, 8,08/11/2006,12/01 DTaP / Hep B / IPV 07/07/2008,08/11/2006, 005 DTaP / IPV 06/30/2009 Hep A, Ped Unspecified 07/07/2008,08/11/2006 Hep A, Pediatric 07/07/2008,08/11/2006 Hep B, Adolescent or Pediatric 8,08/11/2006,2004,07/17 HiB 08/11/2006,2004 Hib (PRP-T) 2004 IPV 07/07/2008,08/11/2006,2004 MMR 06/30/2009,08/11/2006 MMRV 08/11/2006 Meningococcal A,C,W,Y-TT (Ak a Menquadfi) 07/25/2022 Meningococcal MCV4P (Menactra) 07/06/2016 Pneumococcal Conjugate 7-Valent 08/11/2006,12/01 Tdap 07/06/2016 Varicella 06/30/2009,08/11/2006 Social History Tobacco Use Types Packs/Day Years Used Date Smoking Tobacco: Never Smokeless Tobacco: Never Tobacco Cessation:Counseling Given: Not Answered Alcohol Use Standard Drinks/Week Comments No 0 (1 standard drink = 0.6 oz pur e alcohol) AUDIT-C Answer Date Recorded Q1: How often do you have a drink containing alc ohol? Never 08/16/2022 Average Number of Drinks Not on file 022 Frequency of Binge Drinking Not on file 10/2021 PHQ-2 Answer Date Recorded PHQ-2 Total Score (If total score is 3 or more points, staff should administer the PHQ-9) 0 08/16/2022 Hunger Vital Sign Answer Date Recorded Within the past 12 months, y ou worried that your food would run out before you got the money to buy more. Never true 10/25/19 25 Within the past 12 months, t he food you bought just didn't last and you didn't have money to get more. Never true 10/25/2024 Personal Safety Answer Date Recorded Have you ever been in or are you currently in a harmful physical or emotional relationship or is someone making you feel afraid or unsafe? Denies 09/09/2024 Comments No Sex and Gender Information Value Date Recorded Sex Assigned at Not on file Legal Sex Female 11:54 AM PILE DRIVER Gender Identity Not on file Sexual Orientation Not on file Last Filed Vital Signs Vital Sign Reading Time Taken Comments Blood Pressure 156/81 10/25/2024 9:42 AM PILE DRIVER Pulse 99 10/25/2024 9:42 AM PILE DRIVER Temperature 36.5 ??C (97.7 ??F) 09/09/2024 8:26 PM CS T Respiratory Rate 18 10/25/2024 9:42 AM PILE DRIVER Oxygen Saturation 100% 10/25/2024 9:42 AM PILE DRIVER Inhaled Oxygen Concentration - - Weight 142.9 kg (315 lb) 10/25/2024 9:42 AM PILE DRIVER Height 160 cm (5' 3 ) 10/25/2024 9:42 AM PILE DRIVER Body Mass Index 55.8 10/25/2024 9:42 AM PILE DRIVER Plan of Treatment Not on file Procedures Procedure Name Priority Date/Time Associated Diagnosis Comments THYROID FUNCTION CASCADE Routine 10/25/2024 10:56 AM PILE DRIVER Irregular periods CT ABDOMEN PELVIS W CONTRAST ED 09/09/2024 6:11 PM PILE DRIVER EGFR STAT 09/09/2024 4:23 PM PILE DRIVER DIFFERENTIAL AUTO STAT 09/09/2024 4:2 3 PM PILE DRIVER LIPASE STAT 09/09/2024 4:23 PM PILE DRIVER CBC WITH AUTO DIFFERENTIAL STAT 09/09/2024 4:23 PM PILE DRIVER COMPREHENSIVE METABOLIC PANEL STAT 09/09/2024 4:23 PM PILE DRIVER TRICHOMONAS VAGINALIS PCR STAT 09/09/2024 4:23 PM PILE DRIVER N. GONORRHOEAE/C. TRACHOMATIS AMPLIFICATION STAT 09/09/2024 4:23 PM PILE DRIVER URINALYSIS, MICROSCOPIC ONLY STAT 09/09/2024 3:44 PM PILE DRIVER HCG, URINE, QUALITATIVE STAT 09/09/2024 3:44 PM PILE DRIVER URINALYSIS AND REFLEX TO MICROSCOPIC AND CULTURE STAT 09/09/2024 3:44 PM PILE DRIVER US PELVIS AND OVARIAN DOPPLER LIMITED (C) ED 09/09/2024 3:08 PM PILE DRIVER from Last 3 Months Results * Thyroid Function [place] (10/25/2024 10:56 AM PILE DRIVER) TSH 2.98 0.30 - 4.20 mcIUnit/mL Blood 10/25/2024 10:5 6 AM PILE DRIVER 10/25/2024 11:41 AM PILE DRIVER us Galina Ding MD LAB BLOOD ORDERABLES Yudelka l Result [facility] [place] [address] * CT Abdomen Pelvis W Contrast (09/09/2024 6:11 PM PILE DRIVER) Anatomical Region Laterality Modality Body N/A Computed Tomogra phy 09/09/2024 7:57 PM PILE DRIVER Impressions 09/10/2024 9:52 AM PILE DRIVER 1. ??No CT findings to explain the patient's right lower quadrant abdominal pain. Dictated by: Olga Hoyt MD, PhD. The radiology attending physician has personally reviewed this study, and had reviewed and/or edited this written report and agrees with it. Electronically signed by: Judy Isidro M.D. Narrative 09/10/2024 9:52 AM PILE DRIVER EXAMINATION: ??CT ABDOMEN PELVIS W CONTRAST HISTORY: 19-year-old female with history of endometriosis presenting with acute right lower quadrant pain. Age: 19 years Gender: Female TECHNIQUE: Computed tomography (CT) of the abdomen and pelvis was performed after the uneventful administration of 100 mL of Optiray-320 intravenous contrast. Oral contrast was not administered prior to imaging. COMPARISON: Comparison is made with same day pelvic ultrasound from 3:00 PM.. FINDINGS: There is no pulmonary consolidation, mass, or edema in the lung bases. ??No pleural effusion or pneumothorax. The imaged heart size is normal. ??There is no pericardial effusion. The hepatic parenchyma is normal without focal lesion. ??There is no intrahepatic or extrahepatic biliary ductal dilation. ??The gallbladder is unremarkable. ??The portal, splenic, and superior mesenteric veins are patent. The spleen, pancreas, and adrenal glands are normal. ??Splenules in the left upper quadrant. The kidneys enhance symmetrically. ??There is no hydronephrosis or obstructive nephrolithiasis. ??The urinary bladder is normal. ??The uterus is normal. ??No suspicious adnexal lesions. ??Trace ascites in the pelvis. ??No pneumoperitoneum. ??No suspicious lymphadenopathy in the abdomen or pelvis. The stomach, duodenum, and small bowel are unremarkable. ??There is no bowel wall thickening or obstruction. ??The appendix appears normal with intraluminal air. Gas and stool throughout the colon. No suspicious osseous lesions. ??The course and caliber of the abdominal aorta is normal. Procedure Note Judy Isidro MD - 09/10/2024 EXAMINATION: CT ABDOMEN PELVIS W CONTRAST HISTORY: 19-year-old female with history of endometriosis presenting with acute right lower quadrant pain. Age: 19 years Gender: Female TECHNIQUE: Computed tomography (CT) of the abdomen and pelvis was performed after the uneventful administration of 100 mL of Optiray-320 intravenous contrast. Oral contrast was not administered prior to imaging. COMPARISON: Comparison is made with same day pelvic ultrasound from 3:00 PM.. FINDINGS: There is no pulmonary consolidation, mass, or edema in the lung bases. No pleural effusion or pneumothorax. The imaged heart size is normal. There is no pericardial effusion. The hepatic parenchyma is normal without focal lesion. There is no intrahepatic or extrahepatic biliary ductal dilation. The gallbladder is unremarkable. The portal, splenic, and superior mesenteric veins are patent. The spleen, pancreas, and adrenal glands are normal. Splenules in the left upper quadrant. The kidneys enhance symmetrically. There is no hydronephrosis or obstructive nephrolithiasis. The urinary bladder is normal. The uterus is normal. No suspicious adnexal lesions. Trace ascites in the pelvis. No pneumoperitoneum. No suspicious lymphadenopathy in the abdomen or pelvis. The stomach, duodenum, and small bowel are unremarkable. There is no bowel wall thickening or obstruction. The appendix appears normal with intraluminal air. Gas and stool throughout the colon. No suspicious osseous lesions. The course and caliber of the abdominal aorta is normal. IMPRESSION: 1. No CT findings to explain the patient's right lower quadrant abdominal pain. Dictated by: Olga Hoyt MD, PhD. The radiology attending physician has personally reviewed this study, and had reviewed and/or edited this written report and agrees with it. Electronically signed by: Judy Isidro M.D. Jeannette Hall MD IMG CT PROCEDURES Fi nal Result * N. gonorrhoeae/C. trachomatis Amplification Urine (09/09/2024 4:23 PM PILE DRIVER) C. trachomatis Not Detected Not Detected [facility] Comment:Testing performed by : [facility], [address] [place]., [address] N. gonorrhoeae Not Detected Not Detected [facility] Comment: Interpretive Data This assay detects Chlamydia trachomatis and Neisseria gonorrhoeae by nucleic acid amplification testing (NAAT). This assay has been cleared by the [place] Food and Drug administration. The performance characteristics of this test have been verified by the [facility] Molecular Infectious Disease laboratory. The performance characteristics of this test have not been evaluated in individuals less than 14 years of age. Current Interpretive Data last revised 2023. Testing performed by: [facility], [address] [place] [address]., [id number] Urine (None) 09/09/2024 4:23 PM PILE DRIVER 09/09/2024 4:45 PM PILE DRIVER Jeannette Hall MD LAB MICROBIOLOGY - G ENERAL ORDERABLES Final Result Performing Organization Address [facility] [place] [address] [facility] * Trichomonas vaginalis PCR Urine (09/09/2024 4:23 PM PILE DRIVER) Trichomonas DNA Not Detected Not Detected [facility] Comment: Interpretive Data This assay detects Trichomonas vaginalis by nucleic acid amplification testing (NAAT). This assay has been cleared by the [place] Food and Drug administration. The performance characteristics of this test have been verified by the [facility] Infectious Disease laboratory. Excess blood in specimens may be inhibitory and result in false negative results. ??The performance of this test has not been evaluated in women or individuals less than 18 years of age. Current Interpretive Data last revised 2023. Testing performed by: [facility], [address] [place] [address]., [id number] Urine 09/09/2024 4:23 PM PILE DRIVER 09/09/2024 4:45 PM PILE DRIVER Jeannette Hall MD LAB MICROBIOLOGY - G ENERAL ORDERABLES Final Result Performing Organization Address City/[facility] Co de Phone Number [facility] [place] [address] BJ * eGFR (09/09/2024 4:23 PM PILE DRIVER) Pathologist [facility] eGFR >90 >=90 mL/min/1. 73 m2 Comment: Interpretive Data Reference Interval Normal ?>/= 90 mL/min/1.73m2 Mildly decreased* ? 60 - 89 mL/min/1.73m2 Mildly to moderately decreased ?45 - 59 mL/min/1.73m2 Moderately to severely decreased ??30 - 44 mL/min/1.73m2 Severely decreased ?15 - 29 mL/min/1.73m2 Kidney Failure ?< 15 ??mL/min/1.73m2 *Relative to young adult level Estimated glomerular filtration rate is determined by the 2020 CKD-EPI equation recommended by the National Kidney Foundation (A Unifying Approach to GFR Estimation: Recommendations of the NKF-ASK Task Force on Reassessing the Inclusion of Race in Diagnosing Kidney Disease, JASN 2020). The CKD-EPI equation should not be used for patients with unstable renal function and has not been validated in children and those over 70. Current interpretive data was last reviewed 2021. Blood 09/09/2024 4:23 PM PILE DRIVER 09/09/2024 4:39 PM PILE DRIVER Jeannette Hall MD LAB BLOOD ORDERABLES Final Result [facility] Department [place] [address] * (ABNORMAL) Differential, auto (09/09/2024 4:23 PM PILE DRIVER) [facility] Neutrophil abs 8.0(H) 1.5 - 6.5 K/cumm Imm gran abs 0.1 0.0 - 0.1 K/cumm [facility] Lymphocyte abs 2.6 0.8 - 3.3 K/cumm [facility] Monocyte abs 0.6 0.2 - 0.8 K/cumm [facility] Eosinophil abs 0.1 0.0 - 0.5 K/cumm [facility] Basophil abs 0.0 0.0 - 0.1 K/cumm [facility] Neutrophil pct 70.2 % [facility] Comment: Interpretive Data Percent cell count reference ranges are not reported, since discordance with absolute values may lead to misinterpretation of CBC data. Current Interpretive Data was last revised on 2018. Imm gran pct 0.4 % [facility] Comment: Interpretive Data Percent cell count reference ranges are not reported, since discordance with absolute values may lead to misinterpretation of CBC data. Current Interpretive Data was last revised on 2018. Lymphocyte pct 22.9 % [facility] Comment: Interpretive Data Percent cell count reference ranges are not reported, since discordance with absolute values may lead to misinterpretation of CBC data. Current Interpretive Data was last revised on 2018. Monocyte pct 5.4 % [facility] Comment: Interpretive Data Percent cell count reference ranges are not reported, since discordance with absolute values may lead to misinterpretation of CBC data. Current Interpretive Data was last revised on 2018. Eosinophil pct 0.8 % [facility] Comment: Interpretive Data Percent cell count reference ranges are not reported, since discordance with absolute values may lead to misinterpretation of CBC data. Current Interpretive Data was last revised on 2018. Basophil pct 0.3 % [facility] Comment: Interpretive Data Percent cell count reference ranges are not reported, since discordance with absolute values may lead to misinterpretation of CBC data. Current Interpretive Data was last revised on 2018. Blood 09/09/2024 4:23 PM PILE DRIVER 09/09/2024 4:39 PM PILE DRIVER us Jeannette Hall MD LAB BLOOD ORDERABLES Final Result [facility] Department [place] [address] * (ABNORMAL) CBC with auto differential (09/09/2024 4:23 PM PILE DRIVER) [facility] WBC 11.3(H) 3.8 - 9.9 K/cumm Hgb 13.9 11.9 - 15.5 g/dL [facility] Hct 41.6 35.6 - 45.5 % [facility] Plt 346 150 - 400 K/cumm [facility] MPV 10.3 9.1 - 12.3 fL [facility] RBC 4.80 3.90 - 5.20 M/cumm [facility] MCV 86.7 81.3 - 96.4 fL [facility] MCH 29.0 27.1 - 33.3 pg [facility] MCHC 33.4 32.3 - 35.7 g/dL [facility] RDW CV 13.0 11.1 - 14.9 % [facility] RDW SD 40.8 35.7 - 48.1 fL [facility] NRBC abs 0.00 0.00 - 0.01 K/cumm [facility] Blood 09/09/2024 4:23 PM PILE DRIVER 09/09/2024 4:39 PM PILE DRIVER Jeannette Hall MD LAB BLOOD ORDERABLES Final Result Performing Organization Address [facility] Co de Phone Number [facility] [employer] [place] [address] * Lipase (09/09/2024 4:23 PM PILE DRIVER) [facility] Lipase 22 10 - 99 Units/L Blood 09/09/2024 4:23 PM PILE DRIVER 09/09/2024 4:39 PM PILE DRIVER Jeannette Hall MD LAB BLOOD ORDERABLES Final Result [facility] [place] [address] * Comprehensive metabolic panel (09/09/2024 4:23 PM PILE DRIVER) [facility] Sodium 139 135 - 145 mmol/L Potassium, pl 3.5 3.3 - 4.9 mmol/L [facility] Chloride 106 97 - 110 mmol/L [facility] CO2 24 22 - 32 mmol/L [facility] Anion gap 9 2 - 15 mmol/L [facility] BUN 7 6 - 25 mg/dL [facility] Creatinine 0.61 0.60 - 1.10 mg/dL [facility] Glucose 119 70 - 199 mg/dL [facility] Comment: Interpretive Data Fasting glucose >/= 126 mg/dl is diagnostic for diabetes. ?? Fasting is defined as no caloric intake for at least 8 hours. Fasting glucose between 100 mg/dl to 125 mg/dl is diagnostic of prediabetes. In a patient with classic symptoms of hyperglycemia or hyperglycemic crisis, a random glucose >/= 200 mg/dl is diagnostic for diabetes. In the absence of unequivocal hyperglycemia, results should be confirmed by repeat testing. The classification and Diagnosis of Diabetes Diabetes Care 2021; 46: S19-S40. Current interpretive data was last revised 2022. Calcium 9.4 8.5 - 10.3 mg/dL [facility] Bilirubin, total 0.4 0.1 - 1.2 mg/dL [facility] Protein, pl 7.3 6.5 - 8.5 g/dL [facility] Albumin 4.4 3.5 - 5.0 g/dL [facility] Alk phos 76 40 - 130 Units/L [facility] ALT 21 7 - 45 Units/L [facility] AST 17 10 - 45 Units/L [facility] Blood 09/09/2024 4:23 PM PILE DRIVER 09/09/2024 4:39 PM PILE DRIVER us Jeannette Hall MD LAB BLOOD ORDERABLES Final Result [facility] Department [facility] [place] [place] [address] * (ABNORMAL) Urinalysis reflex to microscopic and culture Urine (09/09/2024 3:44 PM PILE DRIVER) Color, ur Straw Yellow Clarity, ur Clear Clear [facility] Specific gravity, ur 1.008 1.003 - 1.030 [facility] pH, urine 6.5 [facility] Comment: Interpretive Data ? Urine pH is affected by diet, medications, systemic acid-base disturbances, and renal tubular function. ??pH may affect urinary stone formation. ??For example, urine pH below 6.0 may help reduce the tendency for calcium phosphate stones and pH greater than 6.0 may reduce the tendency for uric acid stone formation. Source: [facility] Current Interpretive Data was last revised on 2017 Protein, ur ql Negative Negative [facility] Glucose, ur ql Negative Negative [facility] Ketones, ur Negative Negative [facility] Bilirubin, ur Negative Negative [facility] Blood, ur 2+(A) Negative [facility] Urobilinogen, ur <2.0 <2.0 mg/dL [facility] Nitrite, ur Negative Negative [facility] Leukocyte esterase, ur Negative Negative [facility] UA reflex comment Reflex to microscopic UA will be performed. [facility] Urine 09/09/2024 3:44 PM PILE DRIVER 09/09/2024 3:48 PM PILE DRIVER Jeannette Hall MD LAB MICROBIOLOGY - G ENERAL ORDERABLES Final Result Performing Organization Address City/[facility] Co de Phone Number [facility] Department [place] [address] * hCG, urine, qualitative (09/09/2024 3:44 PM PILE DRIVER) HCG, ur Negative Negative Urine 09/09/2024 3:44 PM PILE DRIVER 09/09/2024 3:48 PM PILE DRIVER Jeannette Hall MD LAB URINE ORDERABLES Final Result Performing Organization Address City/[facility]/ZIP Co de Phone Number [facility] Department [place] [address] * (ABNORMAL) Urinalysis, microscopic only (09/09/2024 3:44 PM PILE DRIVER) WBC, ur 0-5 0 - 5 /HPF RBC, ur 21-50(A) 0 - 2 /HPF [facility] Epithelial cells, squamous, ur 1-5 0 - 5 /HPF [facility] Culture Reflex Comment Reflex conditions for urine culture (WBC >10) not met. [facility] Urine 09/09/2024 3:44 PM PILE DRIVER 09/09/2024 3:48 PM PILE DRIVER us Jeannette Hall MD LAB URINE ORDERABLES Final Result [facility] Department [place] [address] * US Pelvis and Ovarian Doppler Limited (R/O Torsion in a pelvis) (09/09/2024 3:08 PM PILE DRIVER) Anatomical Region Laterality Modality Pelvis N/A Ultrasound 09/09/2024 3:28 PM PILE DRIVER Impressions 09/09/2024 4:06 PM PILE DRIVER No evidence of torsion. Small ovaries bilaterally given post-pubertal status. Dictated by: Shital Bethea MD The radiology attending physician has personally reviewed this study, and had reviewed and/or edited this written report and agrees with it. Electronically signed by: Juliet Herndon M.D. Narrative 09/09/2024 4:06 PM PILE DRIVER EXAMINATION: ??US PELVIS AND OVARIAN DOPPLER LIMITED (C) INDICATION(S)/HISTORY: ??RLQ pain, eval ovarian cyst vs torsion. Patient age: 19 years Patient sex: Female COMPARISON: No prior relevant examinations are available for comparison. FINDINGS: The uterus is adult female in configuration and size. ??The endometrial stripe is 4 mm. The right ovary measures 2.3 x 1.1 x 1.6 cm for a volume of 2.1 mL. ?? The left ovary measures 2.4 x 1.2 x 1.7 cm for a volume of 2.5 mL. There are no dominant cysts or masses. Small follicles are noted bilaterally. Color Doppler evaluation with spectral waveform analysis was performed and shows symmetric flow with normal arterial and venous waveforms. Procedure Note Juliet Herndon MD - 09/09/2024 EXAMINATION: US PELVIS AND OVARIAN DOPPLER LIMITED (C) INDICATION(S)/HISTORY: RLQ pain, eval ovarian cyst vs torsion. Patient age: 19 years Patient sex: Female COMPARISON: No prior relevant examinations are available for comparison. FINDINGS: The uterus is adult female in configuration and size. The endometrial stripe is 4 mm. The right ovary measures 2.3 x 1.1 x 1.6 cm for a volume of 2.1 mL. The left ovary measures 2.4 x 1.2 x 1.7 cm for a volume of 2.5 mL. There are no dominant cysts or masses. Small follicles are noted bilaterally. Color Doppler evaluation with spectral waveform analysis was performed and shows symmetric flow with normal arterial and venous waveforms. IMPRESSION: No evidence of torsion. Small ovaries bilaterally given post-pubertal status. Dictated by: Shital Bethea MD The radiology attending physician has personally reviewed this study, and had reviewed and/or edited this written report and agrees with it. Electronically signed by: Juliet Herndon M.D. Jeannette Hall MD [facility] Fi nal Result from Last 3 Months Insurance [facility] Care Teams Car Pincher Relationship Specialty Start Date End Date No, Physician PCP - General 09/03/23
--- OUTSIDE RECORDS SUMMARY | 2024-11-08 03:08 | XMS_ITS | Clinical Summary ---
Author Organization [facility] Address [address] [place] [address]. [place] [address] [place] [address] Care Team Providers Care Payroll Coordinator Name Role Phone None, Provider MD Primary Care Provider Unavaila ble Allergies Active Allergy Reactions Criticality Noted Date Comments Chlorine Hives Medium 06/08/2022 Latex Anaphylaxis,Rash High 06/08/2022 [place] Butter Hives Medium 06/08/2022 Medications No known medications Active Problems Problem Noted Date Diagnosed Date Class 3 severe obesity due t o excess calories with body mass index (BMI) of 50.0 to 59.9 in adult, unspecified whether serious comorbidity present ([facility]) 01/30/2024 Immunizations Name Administration Dates Next Due [id number] (Pediarix) 07/07/2008,08/11/2006,0 2004 DTaP-IPV (Kinrix) 06/30/2009 Dtap (Acel-Immune) 06/30/2009,07/07/2008, 006,2004 Hepatitis A (Generic) 07/07/2008,08/11/2006 Hepatitis A (Havrix [address]) 08/11/2006 Hepatitis B Pediatric 07/07/2008,08/11/2006,11/16,2004 Hib (Generic) 08/11/2006,2004 MMR (MMRII) 06/30/2009 Meningococcal (MenQuadfi) 07/25/2022 Meningococcal (Menactra) 07/06/2016 Pneumococcal (Prevnar 7) 08/11/2006,2004 Polio IPV (Ipol) 07/07/2008,08/11/2006, 5 Tdap (Generic) 07/06/2016 Varicella (Varivax) 06/30/2009,08/11/2006 Varicella/MMR (Proquad) 08/11/2006 Social History Tobacco Use Types Packs/Day Years Used Date Smoking Tobacco: Never Smokeless Tobacco: Never Tobacco Cessation:Counseling Given: Not Answered Alcohol Use Standard Drinks/Week Comments Never 0 (1 standard drink = 0.6 oz pur e alcohol) Comments Unknown Sex and Gender Information Value Date Recorded Sex Assigned at Not on file Legal Sex Female 3:50 PM CDT Gender Identity Not on file Sexual Orientation Not on file Last Filed Vital Signs Vital Sign Reading Time Taken Comments Blood Pressure 132/74 02/22/2024 2:52 PM CDT Pulse 86 02/22/2024 2:52 PM CDT Temperature 36.4 ??C (97.5 ??F) 02/22/2024 2:52 PM CD T Respiratory Rate 16 02/12/2024 8:10 PM CDT Oxygen Saturation 99% 02/22/2024 2:52 PM CDT Inhaled Oxygen Concentration - - Weight 131.5 kg (290 lb) 02/12/2024 8:10 PM CDT Height 157.5 cm (5' 2 ) 02/12/2024 8:10 PM CDT Body Mass Index 53.04 02/12/2024 8:10 PM CDT Plan of Treatment Health Maintenance Due Date Last Done Comments Annual Physical 2007 PHQ-2 (Physician [place]) 2016 HPV Vaccines (1 - 3-dose series) 2019 Meningococcal B Vaccine (1 of 2 - Standard) 2020 Hepatitis C 2022 COVID-19 Vaccine ( - season) 2024 Influenza Adult (#1) 2024 DTaP, Tdap and Td Vaccines (6 - Td or Tdap) 07/06/2026 07/06/2016, 06/30/2009, 06/30/2009, Additional history exists Pneumococcal Vaccine: Pediatrics (0 to 5 Years) and At-Risk Patients (6 to 64 Years) Aged Out 08/11/2006, 2004 No longer eligibl e based on patient's age to complete this topic Hepatitis B Vaccines Completed 07/07/2008, 07/07/2008, 08/11/2006, Additional history exists Meningococcal Vaccine Completed 07/25/2022, 016 RSV Immunizations Under 20 Months Aged Out No longer eligible based on patient's age to complete this topic Insurance [employer] Care Teams Payroll Coordinator Relationship Specialty Start Date End Date None, Provider, MD PCP - General UNKNOWN PHYSICIAN SPECIALTY 07/10/23
--- OUTSIDE RECORDS SUMMARY | 2024-11-08 03:08 | XMS_ITS | Clinical Summary ---
Author Organization [facility] [address] Address [address] [place] [address] Phone Care Team Providers Care Potable Water Treatment Operator Name Role Phone No, Physician Primary Care Provider [phone] Allergies Active Allergy Reactions Criticality Noted Date Comments Chlorine Hives Medium 06/08/2022 Latex Rash Medium 06/08/2022 [place]alp[place] Butter Hives Medium 06/08/2022 Medications fluticasone propionate (FLONASE) 50 mcg/actuation nasal spray Administer 2 sprays into each nostril daily 3 each 4 03/25/20 22 Active Additional Information Patient not [...] (06/24/2022 3:19 PM CDT): Hearing test at [facility] Acute otitis externa of left ear 06/08/2022 [...] fibroids, thicken endometrium etc -will referred to aeronautical engineering teacher for evaluation and treatment Elevated blood-pressure read [...] of the week. (minimum 150 minutes weekly) Encounters Date Type Department Care Team Description 10/29/2024 Orders Only Obstetrics and Gynecology Clinic [address] [place] [address] for Outpatient [facility] 3rd Floor [address] [place] [address] Ria Edwards RN 10/25/2024 10:15 AM CAFE COOK Office Visit Obstetrics and Gynecology Clinic [address] [facility] 3rd Floor [address] [place] [address] Galina Ding MD Endometriosis (Primary Dx); Irregular periods; Pelvic and perineal pain 09/09/2024 1:08 PM CAFE COOK - 09/09/2024 8:28 PM CAFE COOK Emergency [facility] [place] [address] Jeannette Hall MD Anderson, Anne Marie, MD Endometriosis (Primary Dx) Discharge Disposition: Discharge to home or self care from Last 3 Months Immunizations Name Administration Dates Next Due DTaP [...] Conjugate 7-Valent 08/11/2006,12/01 Tdap 07/06/2016 Varicella 06/30/2009,08/11/2006 Medical History Medical History Date Comments Fracture of foot Broken foot; Co mments: SAB 12/28/2015 - Nuchal cord required resusci tation Obesity 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) Headache Depression Family History Medical History Relation Name Comments Depression Mother PTSD Mother Harvey's thyroiditis Other Behavior problems Sister 1 Autism Sister 2 Relation Name Status Comments Mother Other Sister 1 Sister 2 Social History Tobacco Use Types Packs/Day Years [...] on file Legal Sex Female 11:54 AM CAFE COOK Gender Identity Not on file Sexual Orientation Not on file Obstetrics History Para Term AB IAB SAB Ectopic Multiple Livin g Live Births 0 0 0 0 0 0 0 0 0 0 0 Last Filed Vital Signs Vital Sign Reading Time Taken Comments Blood Pressure 156/81 10/25/2024 9:42 AM CAFE COOK Pulse 99 10/25/2024 9:42 AM CAFE COOK Temperature 36.5 ??C (97.7 ??F) 09/09/2024 8:26 PM CS T Respiratory Rate 18 10/25/2024 9:42 AM CAFE COOK Oxygen Saturation 100% 10/25/2024 9:42 AM CAFE COOK Inhaled Oxygen Concentration - - Weight 142.9 kg (315 lb) 10/25/2024 9:42 AM CAFE COOK Height 160 cm (5' 3 ) 10/25/2024 9:42 AM CAFE COOK Body Mass Index 55.8 10/25/2024 9:42 AM CAFE COOK Plan of Treatment Health Maintenance Due Date Last Done Comments Hepatitis C Screening 2004 HPV Vaccines (1 - 3-dose series) 2019 Meningococcal B Vaccine (1 o f 2 - Patient Seeks Protection) 2020 Depression Screening 08/16/2023 08/16/2022, 03/18/20 22 Regular Well Visit/Exam 18-64 08/16/2023 08/16/2022 Influenza Vaccine (#1) 2024 DTaP/Tdap/Td Vaccine (6 - Td or Tdap) 07/06/2026 07/06/2016, 06/30/2009, 06/30/2009, Additional history exists Pneumococcal vaccine <65 Completed 08/11/2006, 11/16 Varicella Vaccines Completed 06/30/2009, 1 , 08/11/2006 Meningococcal Vaccine Completed 07/25/2022, 016 Procedures Procedure Name Priority Date/Time Associated Diagnosis Comments THYROID FUNCTION CASCADE Routine 10/25/2024 10:56 AM CAFE COOK Irregular periods CT ABDOMEN PELVIS W CONTRAST ED 09/09/2024 6:11 PM CAFE COOK EGFR STAT 09/09/2024 4:23 PM CAFE COOK DIFFERENTIAL AUTO STAT 09/09/2024 4:2 3 PM CAFE COOK LIPASE STAT 09/09/2024 4:23 PM CAFE COOK CBC WITH AUTO DIFFERENTIAL STAT 09/09/2024 4:23 PM CAFE COOK COMPREHENSIVE METABOLIC PANEL STAT 09/09/2024 4:23 PM CAFE COOK TRICHOMONAS VAGINALIS PCR STAT 09/09/2024 4:23 PM CAFE COOK N. GONORRHOEAE/C. TRACHOMATIS AMPLIFICATION STAT 09/09/2024 4:23 PM CAFE COOK URINALYSIS, MICROSCOPIC ONLY STAT 09/09/2024 3:44 PM CAFE COOK HCG, URINE, QUALITATIVE STAT 09/09/2024 3:44 PM CAFE COOK URINALYSIS AND REFLEX TO MICROSCOPIC AND CULTURE STAT 09/09/2024 3:44 PM CAFE COOK US PELVIS AND OVARIAN DOPPLER LIMITED (C) ED 09/09/2024 3:08 PM CAFE COOK from Last 3 Months Results * Thyroid Function [place] (10/25/2024 10:56 AM CAFE COOK) TSH 2.98 0.30 - 4.20 mcIUnit/mL Blood 10/25/2024 10:5 6 AM CAFE COOK 10/25/2024 11:41 AM CAFE COOK us Galina Ding MD LAB BLOOD ORDERABLES Yudelka l Result Performing Organization Address City/State/[facility] Co de Phone Number [facility] Department [place] [address] * CT Abdomen Pelvis W Contrast (09/09/2024 6:11 PM CAFE COOK) Anatomical Region Laterality Modality Body N/A Computed Tomogra phy 09/09/2024 7:57 PM CAFE COOK Impressions 09/10/2024 9:52 AM CAFE COOK 1. ??No CT findings to explain the patient's right lower quadrant abdominal pain. Dictated by: Olga Hoyt MD, PhD. The radiology attending physician has personally reviewed this study, and had reviewed and/or edited this written report and agrees with it. Electronically signed by: Judy Isidro M.D. Narrative 09/10/2024 9:52 AM CAFE COOK EXAMINATION: ??CT ABDOMEN PELVIS W CONTRAST HISTORY: [...] gonorrhoeae/C. trachomatis Amplification Urine (09/09/2024 4:23 PM CAFE COOK) C. trachomatis Not Detected Not Detected [facility] Comment:Testing performed by : [address] [address] N. gonorrhoeae Not Detected Not Detected [facility] Comment: Interpretive Data This assay detects Chlamydia trachomatis and Neisseria gonorrhoeae by nucleic acid amplification testing (NAAT). This assay has been cleared by the [place] Food and Drug administration. The performance characteristics of this test have been verified by the [facility] Molecular Infectious Disease laboratory. The performance characteristics of this test have not been evaluated in individuals less than 14 years of age. Current Interpretive Data last revised 2023. Testing performed by: [facility], [address] [place] [address]., [address] Urine (None) 09/09/2024 4:23 PM CAFE COOK 09/09/2024 4:45 PM CAFE COOK Jeannette Hall MD LAB MICROBIOLOGY - G ENERAL ORDERABLES Final Result [facility] Department [place] [address] [facility] * Trichomonas vaginalis PCR Urine (09/09/2024 4:23 PM CAFE COOK) Pathologist [facility] Trichomonas DNA Not Detected Not Detected [facility] Comment: Interpretive Data This assay detects Trichomonas vaginalis by nucleic acid amplification testing (NAAT). This assay has been cleared by the [place] Food and Drug administration. The performance characteristics of this test have been verified by the [facility] Molecular Infectious Disease laboratory. Excess blood in specimens may be inhibitory and result in false negative results. ??The performance of this test has not been evaluated in women or individuals less than 18 years of age. Current Interpretive Data last revised 2023. Testing performed by: [facility], [address] [place]., [address] Urine 09/09/2024 4:23 PM CAFE COOK 09/09/2024 4:45 PM CAFE COOK Jeannette Hall MD LAB MICROBIOLOGY - G ENERAL ORDERABLES Final Result [facility] Department [place] [address] [facility] * eGFR (09/09/2024 4:23 PM CAFE COOK) Pathologist [facility] eGFR >90 >=90 mL/min/1. 73 m2 Comment: [...] last reviewed 2021. Blood 09/09/2024 4:23 PM CAFE COOK 09/09/2024 4:39 PM CAFE COOK us Jeannette Hall MD LAB BLOOD ORDERABLES Final Result Performing Organization Address City/State/[facility] Co de Phone Number [facility] Department [place] [address] * (ABNORMAL) Differential, auto (09/09/2024 4:23 PM CAFE COOK) Neutrophil abs 8.0(H) 1.5 - 6.5 K/cumm Imm gran abs 0.1 0.0 - 0.1 K/cumm [facility] Lymphocyte abs 2.6 0.8 - 3.3 K/cumm [facility] Monocyte abs 0.6 0.2 - 0.8 K/cumm [facility] Eosinophil abs 0.1 0.0 - 0.5 K/cumm [facility] Basophil abs 0.0 0.0 - 0.1 K/cumm [facility] Neutrophil pct 70.2 % [facility] Comment: Interpretive Data Percent cell count reference ranges are not reported, since discordance with absolute values may lead to misinterpretation of CBC data. Current Interpretive Data was last revised on 2018. Imm gran pct 0.4 % [facility] Comment: Interpretive Data Percent cell count reference ranges are not reported, since discordance with absolute values may lead to misinterpretation of CBC data. Current Interpretive Data was last revised on 2018. Lymphocyte pct 22.9 % [facility] Comment: Interpretive Data Percent cell count reference ranges are not reported, since discordance with absolute values may lead to misinterpretation of CBC data. Current Interpretive Data was last revised on 2018. Monocyte pct 5.4 % [facility] Comment: Interpretive Data Percent cell count reference ranges are not reported, since discordance with absolute values may lead to misinterpretation of CBC data. Current Interpretive Data was last revised on 2018. Eosinophil pct 0.8 % [facility] Comment: Interpretive Data Percent cell count reference ranges are not reported, since discordance with absolute values may lead to misinterpretation of CBC data. Current Interpretive Data was last revised on 2018. Basophil pct 0.3 % [facility] Comment: Interpretive Data Percent cell count reference ranges are not reported, since discordance with absolute values may lead to misinterpretation of CBC data. Current Interpretive Data was last revised on 2018. Blood 09/09/2024 4:23 PM CAFE COOK 09/09/2024 4:39 PM CAFE COOK Jeannette Hall MD LAB BLOOD ORDERABLES Final Result [facility] Department [place] [address] * (ABNORMAL) CBC with auto differential (09/09/2024 4:23 PM CAFE COOK) WBC 11.3(H) 3.8 - 9.9 K/cumm Hgb 13.9 11.9 - 15.5 g/dL [facility] Hct 41.6 35.6 - 45.5 % [facility] Plt 346 150 - 400 K/cumm [facility] MPV 10.3 9.1 - 12.3 fL [facility] RBC 4.80 3.90 - 5.20 M/cumm [facility] MCV 86.7 81.3 - 96.4 fL [facility] MCH 29.0 27.1 - 33.3 pg [facility] MCHC 33.4 32.3 - 35.7 g/dL [facility] RDW CV 13.0 11.1 - 14.9 % [facility] RDW SD 40.8 35.7 - 48.1 fL [facility] NRBC abs 0.00 0.00 - 0.01 K/cumm [facility] Blood 09/09/2024 4:23 PM CAFE COOK 09/09/2024 4:39 PM CAFE COOK us Jeannette Hall MD LAB BLOOD ORDERABLES Final Result Performing Organization Address [facility] [place] [address] * Lipase (09/09/2024 4:23 PM CAFE COOK) Lipase 22 10 - 99 Units/L Blood 09/09/2024 4:23 PM CAFE COOK 09/09/2024 4:39 PM CAFE COOK Jeannette Hall MD LAB BLOOD ORDERABLES Final Result Performing Organization Address [facility] [place] [address] * Comprehensive metabolic panel (09/09/2024 4:23 PM CAFE COOK) Sodium 139 135 - 145 mmol/L Potassium, pl 3.5 3.3 - 4.9 mmol/L [facility] Chloride 106 97 - 110 mmol/L [facility] CO2 24 22 - 32 mmol/L [facility] Anion gap 9 2 - 15 mmol/L [facility] BUN 7 6 - 25 mg/dL [facility] Creatinine 0.61 0.60 - 1.10 mg/dL [facility] Glucose 119 70 - 199 mg/dL [facility] Comment: Interpretive Data Fasting glucose >/= 126 [...] classification and Diagnosis of Diabetes Diabetes Care 202; 46: S19-S40. Current interpretive data was last revised 2022. Calcium 9.4 8.5 - 10.3 mg/dL [facility] Bilirubin, total 0.4 0.1 - 1.2 mg/dL [facility] Protein, pl 7.3 6.5 - 8.5 g/dL [facility] Albumin 4.4 3.5 - 5.0 g/dL [facility] Alk phos 76 40 - 130 Units/L [facility] ALT 21 7 - 45 Units/L [facility] AST 17 10 - 45 Units/L [facility] Blood 09/09/2024 4:23 PM CAFE COOK 09/09/2024 4:39 PM CAFE COOK Jeannette Hall MD LAB BLOOD ORDERABLES Final Result [facility] Department [place] [address] * (ABNORMAL) Urinalysis reflex to microscopic and culture Urine (09/09/2024 3:44 PM CAFE COOK) Color, ur Straw Yellow Clarity, ur Clear Clear [facility] Specific gravity, ur 1.008 1.003 - 1.030 [facility] pH, urine 6.5 [facility] Comment: Interpretive Data ? Urine pH is affected by diet, medications, systemic acid-base disturbances, and renal tubular function. ??pH may affect urinary stone formation. ??For example, urine pH below 6.0 may help reduce the tendency for calcium phosphate stones and pH greater than 6.0 may reduce the tendency for uric acid stone formation. Source: [facility] [employer] Current Interpretive Data was last revised on 2017 Protein, ur ql Negative Negative [facility] Glucose, ur ql Negative Negative [facility] Ketones, ur Negative Negative [facility] Bilirubin, ur Negative Negative [facility] Blood, ur 2+(A) Negative [facility] Urobilinogen, ur <2.0 <2.0 mg/dL [facility] Nitrite, ur Negative Negative [facility] Leukocyte esterase, ur Negative Negative [facility] UA reflex comment Reflex to microscopic UA will be performed. [facility] Urine 09/09/2024 3:44 PM CAFE COOK 09/09/2024 3:48 PM CAFE COOK us Jeannette Hall MD LAB MICROBIOLOGY - G ENERAL ORDERABLES Final Result Performing Organization Address [facility] [place] [address] * hCG, urine, qualitative (09/09/2024 3:44 PM CAFE COOK) HCG, ur Negative Negative Urine 09/09/2024 3:44 PM CAFE COOK 09/09/2024 3:48 PM CAFE COOK us Jeannette Hall MD LAB URINE ORDERABLES Final Result Performing Organization Address [facility] [place] [address] * (ABNORMAL) Urinalysis, microscopic only (09/09/2024 3:44 PM CAFE COOK) WBC, ur 0-5 0 - 5 /HPF RBC, ur 21-50(A) 0 - 2 /HPF [facility] Epithelial cells, squamous, ur 1-5 0 - 5 /HPF [facility] Culture Reflex Comment Reflex conditions for urine culture (WBC >10) not met. [facility] Urine 09/09/2024 3:44 PM CAFE COOK 09/09/2024 3:48 PM CAFE COOK us Jeannette Hall MD LAB URINE ORDERABLES Final Result Performing Organization Address [facility] [place] [address] * US Pelvis and Ovarian Doppler Limited (R/O Torsion in a pelvis) (09/09/2024 3:08 PM CAFE COOK) Anatomical Region Laterality Modality Pelvis N/A Ultrasound 09/09/2024 3:28 PM CAFE COOK Impressions 09/09/2024 4:06 PM CAFE COOK No evidence of torsion. Small ovaries bilaterally given post-pubertal status. Dictated by: Shital Bethea MD The radiology attending physician has personally reviewed this study, and had reviewed and/or edited this written report and agrees with it. Electronically signed by: Juliet Herndon M.D. Narrative 09/09/2024 4:06 PM CAFE COOK EXAMINATION: ??US PELVIS AND OVARIAN DOPPLER LIMITED [...] by: Juliet Herndon M.D. Jeannette Hall MD [facility] PROCEDURES Fi nal Result from Last 3 Months Insurance [facility] Care Teams Potable Water Treatment Operator Relationship Specialty Start Date End Date No, Physician PCP - General 09/03/23
--- OUTSIDE RECORDS SUMMARY | 2024-11-08 03:08 | XMS_ITS | Clinical Summary ---
Author Organization [facility] Address [address] [place] [address] Phone Care Team Providers Care Medicaid Collection Specialist Name Role Phone Provider, None Primary Care Provider Unavailabl e Allergies No known active allergies Medications ibuprofen (MOTRIN) 600 MG Tablet Take 600 mg by mouth every 6 hours as needed. Active cetirizine (ZYRTEC) 10 MG Tablet Take 10 mg by mouth daily. 12/29/2019 Active LORazepam (ATIVAN) 0.5 MG Tablet Take 1 Tab by mouth 2 times daily as needed for Anxiety. 15 Tab 09/03/2020 Active Social History Tobacco Use Types Packs/Day Years Used Date Smoking Tobacco: Never Smokeless Tobacco: Never Alcohol Use Standard Drinks/Week Comments Never 0 (1 standard drink = 0.6 oz pur e alcohol) AUDIT-C Answer Date Recorded Frequency of Alcohol Consumption Never 03/01/2019 Average Number of Drinks Not on file 019 Frequency of Binge Drinking Not on file 02/13 Comments No Sex and Gender Information Value Date Recorded Sex Assigned at Not on file Legal Sex Female 7:06 PM CDT Gender Identity Not on file Sexual Orientation Not on file Last Filed Vital Signs Vital Sign Reading Time Taken Comments Blood Pressure 136/88 09/03/2020 3:45 AM ASSISTANT SALES MANAGER Pulse 91 09/03/2020 3:45 AM ASSISTANT SALES MANAGER Temperature 37.6 ??C (99.7 ??F) 09/03/2020 2:33 AM CS T Respiratory Rate 18 09/03/2020 3:45 AM ASSISTANT SALES MANAGER Oxygen Saturation 94% 09/03/2020 3:45 AM ASSISTANT SALES MANAGER Inhaled Oxygen Concentration - - Weight 287 kg (632 lb 11.5 oz) 09/03/2020 2:33 A M ASSISTANT SALES MANAGER Height 157.5 cm (5' 2 ) 09/03/2020 2:33 AM ASSISTANT SALES MANAGER Body Mass Index 115.73 09/03/2020 2:33 AM ASSISTANT SALES MANAGER Plan of Treatment Health Maintenance Due Date Last Done Comments Hepatitis C Virus (HCV) Screening 2004 Human Papillomavirus (HPV) Immunization (1 - 3-dose series) 2019 Meningococcal B Immunization (1 of 2 - Standard) 2020 Influenza Immunization (#1) 2024 SARS-COV-2 Immunization ( season) 2024 Respiratory Syncytial Virus (RSV) Immunization (Adult) (1 - 1-dose 75+ series) 2079 Pneumococcal Immunization Combined Aged Out 08/11/2006, 2004 No longer eligibl e based on patient's age to complete this topic Hepatitis A Immunization Discontinued 07/07/2008, 07/17 Hepatitis B Immunization Completed 008, 08/11/2006, 2004, Additional history exists Measles Mumps Rubella (MMR) Immunization Discontinued 06/30/2009, 08/11/2006 Polio (IPV) Immunization Discontinued 009, 07/07/2008, 08/11/2006, Additional history exists Varicella Immunization Discontinued 06/30/2009, 2005 DTaP/Tdap/Td Immunization Discontinued 2015, 06/30/2009, 07/07/2008, Additional history exists Meningococcal Immunization (ACWY) Aged Out 07/06/2016 No longer eligible based on patient's age to complete this topic TdaP Immunization Completed 07/06/2016 Rotavirus Immunization Aged Out No lo nger eligible based on patient's age to complete this topic Insurance MED[place]ID [place] [employer] [place] Care Teams Medicaid Collection Specialist Relationship Specialty Start Date End Date Provider, None [place] PCP - General 07/11/19
== END 2024-11-06 16:55 | disposition home or self-care (01) ==
PROVIDERS: Emergency Provider Nurse Practitioner
DX: H66.93 Otitis media, unspecified, bilateral (principal); H60.93 Unspecified otitis externa, bilateral; N80.9 Endometriosis, unspecified
CPT/HCPCS: 99213; G0463

== ENCOUNTER 2024-12-21 18:55 | Emergency (ER) | payer OTHER, SELFPAY ==
--- OUTSIDE RECORDS SUMMARY | 2024-12-21 18:56 | XMS_ITS | Referral Summary ---
Author Organization [facility] [address] Address [address] [place] [address] Phone Care Team Providers Care Environmental Adviser Name Role Phone No, Physician Primary Care Provider [phone] Encounters Date Type Department Care Team Description 10/29/2024 Orders Only [facility] [address] [place] [address] Floor [address] [place] [phone] Ria Edwards RN 10/25/2024 10:15 AM DISTRIBUTION LEAD Office Visit [facility] [address] [place] [address] Floor [address] [place] [phone] Galina Ding MD Endometriosis (Primary Dx); Irregular periods; Pelvic and perineal pain from Last 3 Months Allergies Active Allergy Reactions Criticality Noted Date Comments Chlorine Hives Medium 06/08/2022 Latex Rash Medium 06/08/2022 [place] Butter Hives Medium 06/08/2022 Medications fluticasone propionate (FLONASE) 50 mcg/actuation nasal spray Administer 2 sprays into each nostril daily 3 each 4 2 Active Additional Information Patient not taking.Reported on 08/16/2022 cetirizine (ZyrTEC) 10 mg tablet Take 1 tablet (10 mg total) by mouth daily 30 tablet 2 Active Additional Information Patient not taking.Reported on 08/16/2022 ciprofloxacin-de xAMETHasone (CIPRODEX) otic suspensionIndica tions:Acute otitis externa of left ear, unspecified type Administer 4 drops into the left ear 2 (two) times a day 7.5 mL 2 Active Additional Information Patient not taking.Reported on 08/16/2022 clotrimazole 1 % cream Apply topically 2 (two) times a day 30 g 3 Active drospirenone, contraceptive, (SLYND) tablet tablet Take 1 each (4 mg total) by mouth daily 84 tablet 3 5 Active Active Problems Problem Noted Date Diagnosed Date [...] (06/24/2022 3:19 PM CDT): Hearing test at [facility] Acute otitis externa of left ear 06/08/2022 [...] fibroids, thicken endometrium etc -will referred to shipping assistant for evaluation and treatment Elevated blood-pressure read [...] the week. (minimum 150 minutes weekly) Immunizations Immunization Administration Dates Next Due DTaP 06/30/2009, 8,08/11/2006,12/01 [...] on file Legal Sex Female 11:54 AM DISTRIBUTION LEAD Gender Identity Not on file Sexual Orientation Not on file Last Filed Vital Signs Vital Sign Reading Time Taken Comments Blood Pressure 156/81 10/25/2024 9:42 AM DISTRIBUTION LEAD Pulse 99 10/25/2024 9:42 AM DISTRIBUTION LEAD Temperature 36.5 C (97.7 F) 09/09/2024 8:26 PM DISTRIBUTION LEAD Respiratory Rate 18 10/25/2024 9:42 AM DISTRIBUTION LEAD Oxygen Saturation 100% 10/25/2024 9:42 AM DISTRIBUTION LEAD Inhaled Oxygen Concentration - - Weight 142.9 kg (315 lb) 10/25/2024 9:42 AM DISTRIBUTION LEAD Height 160 cm (5' 3 ) 10/25/2024 9:42 AM DISTRIBUTION LEAD Body Mass Index 55.8 10/25/2024 9:42 AM DISTRIBUTION LEAD Plan of Treatment Not on file Procedures Procedure Name Priority Date/Time Associated Diagnosis Comments THYROID FUNCTION CASCADE Routine 10/25/2024 10:56 AM DISTRIBUTION LEAD Irregular periods from Last 3 Months Results * Thyroid Function [place] (10/25/2024 10:56 AM DISTRIBUTION LEAD) TSH 2.98 0.30 - 4.20 mcIUnit/mL Blood 10/25/2024 10:5 6 AM DISTRIBUTION LEAD 10/25/2024 11:41 AM DISTRIBUTION LEAD us Galina Ding MD LAB BLOOD ORDERABLES Yudelka tenorio Result [facility] Department [place] [address] from Last 3 Months Insurance [facility] Member Subscriber Plan / Payer (Ef fective 2015-Present) Name:Ludy Mena Relation to Subscriber:Self Name:Ludy Mena Payer ID:[id number] (NAIC) Type:MEDICAID RISK OTHER Address: [address] [facility] Care Teams Environmental Adviser Relationship Specialty Start Date End Date No, Physician PCP - General 09/03/23
--- OUTSIDE RECORDS SUMMARY | 2024-12-21 18:56 | XMS_ITS | Encounter Summary ---
Author Organization [facility] Address [address] [place] [address] Phone Care Team Providers Care Powder Cutting Operator Name Role Phone Coleman Frank MD Primary Care Provider + [phone] Amy, Physician Primary Care Provider [phone] Coleman Frank MD Primary Care Provider + [phone] Kelsey Soria MD Primary Care Provider + [phone] No, Physician Primary Care Provider [phone] Encounter Details Date Type Department Care Team (Late st Contact Info) Description 06/23/2017 Orders Only [facility] [address] [place] [address] Coleman Frank MD [address] [place] [address] Elevated hemoglobin A1c (Primary Dx); Obesity peds (BMI >=95 percentile) Social History Tobacco Use Types Packs/Day Years Used Date Smoking Tobacco: Smoker, Current Status Unknown Alcohol Use Standard Drinks/Week Comments No 0 (1 standard drink = 0.6 oz pur e alcohol) Comments Unknown Sex and Gender Information Value Date Recorded Sex Assigned at Not on file Legal Sex Female 11:54 AM SPINNER CONCRETE PIPE Gender Identity Not on file Sexual Orientation [...] documented as of this encounter Care Teams Powder Cutting Operator Relationship Specialty Start Date End Date Coleman Frank MD [address] [place] [id number] PCP - General 01/13/17 03/17/20 Amy, Physician PCP - General 03/18/20 10/26/21 Coleman Frank MD [address] [place] [id number] PCP - General 10/27/21 03/17/22 Kelsey Soria MD PCP - General Family Practice 03/18/22 09/02/23 Amy, Physician PCP - General 09/03/23 documented as of this encounter
--- OUTSIDE RECORDS SUMMARY | 2024-12-21 18:56 | XMS_ITS | Clinical Summary ---
Author Organization [facility] Address [address] [place] [address] Phone Care Team Providers Care Business Employment Specialist Name Role Phone Provider, None Primary [...] Comments Blood Pressure 136/88 09/03/2020 3:45 AM SCALE ADJUSTER Pulse 91 09/03/2020 3:45 AM SCALE ADJUSTER Temperature 37.6 C (99.7 F) 09/03/2020 2:33 AM SCALE ADJUSTER Respiratory Rate 18 09/03/2020 3:45 AM SCALE ADJUSTER Oxygen Saturation 94% 09/03/2020 3:45 AM SCALE ADJUSTER Inhaled Oxygen Concentration - - Weight 287 kg (632 lb 11.5 oz) 09/03/2020 2:33 A M SCALE ADJUSTER Height 157.5 cm (5' 2 ) 09/03/2020 2:33 AM SCALE ADJUSTER Body Mass Index 115.73 09/03/2020 2:33 AM SCALE ADJUSTER Plan of Treatment Health Maintenance Due Date [...] JOSEPH MEDICAID JOSEPH MEDICAID JOSEPH Care Teams Business Employment Specialist Relationship Specialty Start Date End Date Provider, None [place] PCP - General 07/11/19
--- OUTSIDE RECORDS SUMMARY | 2024-12-21 18:56 | XMS_ITS | Clinical Summary ---
Author Organization [facility] Address [facility] [place] [address] Care Team Providers Care Marine Surveyor Name Role Phone None, Provider MD Primary [...] in adult, unspecified whether serious comorbidity present 01/30/2024 Immunizations Name Administration Dates Next Due [id number] (Pediarix) 07/07/2008,08/11/2006,0 2004 DTaP-IPV (Kinrix) 06/30/2009 Dtap [...] 86 02/22/2024 2:52 PM CDT Temperature 36.4 C (97.5 F) 02/22/2024 2:52 PM CDT Respiratory Rate 16 02/12/2024 8:10 PM CDT Oxygen Saturation 99% 02/22/2024 2:52 PM CDT Inhaled Oxygen Concentration - - Weight 131.5 kg (290 lb) 02/12/2024 8:10 PM CDT Height 157.5 cm (5' 2 ) 02/12/2024 8:10 PM CDT Body Mass Index 53.04 02/12/2024 8:10 PM CDT Plan of Treatment Health Maintenance Due Date Last Done Comments Annual Physical 2007 PHQ-2 ([email or web address]) 2016 HPV Vaccines (1 - 3-dose series) 2019 Meningococcal B Vaccine (1 of 2 - Standard) 2020 Hepatitis C 2022 COVID-19 Vaccine ( season) 2024 Influenza Adult (#1) 2024 PHQ-2 ([email or web address]) 10/16/2024 DTaP, Tdap and Td Vaccines (6 - [...] complete this topic Insurance JOSEPH Care Teams Marine Surveyor Relationship Specialty Start Date End Date None, Provider, MD PCP - General UNKNOWN PHYSICIAN SPECIALTY 07/10/23
--- OUTSIDE RECORDS SUMMARY | 2024-12-21 18:56 | XMS_ITS | Clinical Summary ---
Author Organization [facility] [address] Address [address] [place] [address] Phone Care Team Providers Care Rag Sorter Name Role Phone No, Physician Primary Care Provider [phone] Allergies Active Allergy Reactions Criticality Noted Date [...] (06/24/2022 3:19 PM CDT): Hearing test at [place] Acute otitis externa of left ear 06/08/2022 [...] fibroids, thicken endometrium etc -will referred to voltage inspector for evaluation and treatment Elevated blood-pressure read [...] 10/29/2024 Orders Only [facility] Clinic [address] [place] [address] Outpatient [facility] 3rd Floor [address] [place] [phone] Ria Edwards RN 10/25/2024 10:15 AM DRUM PRINTER Office Visit [facility] Clinic [address] [place] [address] 3rd Floor [address] [place] [phone] Galina Ding MD Endometriosis (Primary Dx); Irregular periods; Pelvic and perineal pain from Last 3 Months Immunizations Immunization Administration Dates Next Due DTaP [...] on file Legal Sex Female 11:54 AM DRUM PRINTER Gender Identity Not on file Sexual Orientation Not on file Obstetrics History Para Term AB IAB SAB Ectopic Multiple Livin g Live Births 0 0 0 0 0 0 0 0 0 0 0 Last Filed Vital Signs Vital Sign Reading Time Taken Comments Blood Pressure 156/81 10/25/2024 9:42 AM DRUM PRINTER Pulse 99 10/25/2024 9:42 AM DRUM PRINTER Temperature 36.5 C (97.7 F) 09/09/2024 8:26 PM DRUM PRINTER Respiratory Rate 18 10/25/2024 9:42 AM DRUM PRINTER Oxygen Saturation 100% 10/25/2024 9:42 AM DRUM PRINTER Inhaled Oxygen Concentration - - Weight 142.9 kg (315 lb) 10/25/2024 9:42 AM DRUM PRINTER Height 160 cm (5' 3 ) 10/25/2024 9:42 AM DRUM PRINTER Body Mass Index 55.8 10/25/2024 9:42 AM DRUM PRINTER Plan of Treatment Health Maintenance Due Date Last Done Comments Hepatitis C Screening 2004 HPV Vaccines (1 - 3-dose series) 2019 Meningococcal B Vaccine (1 o f 2 - Standard) 2020 Depression Screening 08/16/2023 08/16/2022, 03/18/20 22 Regular Well Visit/Exam 18-64 08/16/2023 08/16/2022 Influenza Vaccine (#1) 2024 DTaP/Tdap/Td Vaccine (6 - Td or Tdap) 07/06/2026 07/06/2016, 06/30/2009, 06/30/2009, Additional history exists Pneumococcal vaccine <65 Completed 08/11/2006, 11/16 Hepatitis B Screening Completed 07/07/2008 , 07/07/2008, 08/11/2006, Additional history exists Varicella Vaccines Completed 06/30/2009, 1 , 08/11/2006 Meningococcal Vaccine Completed 07/25/2022, 016 Procedures Procedure Name Priority Date/Time Associated Diagnosis Comments THYROID FUNCTION CASCADE Routine 10/25/2024 10:56 AM DRUM PRINTER Irregular periods from Last 3 Months Results * Thyroid Function [place] (10/25/2024 10:56 AM DRUM PRINTER) TSH 2.98 0.30 - 4.20 mcIUnit/mL Blood 10/25/2024 10:5 6 AM DRUM PRINTER 10/25/2024 11:41 AM DRUM PRINTER us Galina Ding MD LAB BLOOD ORDERABLES Yudelka tenorio Result [facility] One [facility] [place] [address] from Last 3 Months Insurance [facility] [place] [address] Care Teams Rag Sorter Relationship Specialty Start Date End Date No, Physician PCP - General 09/03/23
[2024-12-21 19:06] VITALS: BP 158/71; PULSE 92; RESP 16; TEMP 36.4; O2SAT 100
--- NOTE | 2024-12-21 19:31 | ED_ITS ---
HPI - General Adult General Chief complaint: Ear Stated complaint: ears Source: patient Mode of arrival: ambulatory Limitations: no limitations History of Present Illness HPI narrative: Patient presents for evaluation of bilateral ear pain. Symptom onset approximately 2 weeks ago. She has a history of otitis media which is recurrent. In the past Augmentin and cefdinir of cause diarrhea. She denies any fever, chills, nausea, vomiting, diarrhea, cough, shortness of breath. She states her current symptoms are consistent with those experienced in the past with ear infections. She has been using some ear drops she was previously prescribed for her symptoms. Related Data Home Medications ?Medication ?Instructions ?Recorded ?Confirmed ?Last Taken ?Type drospirenone (contraceptive) 4 mg 4 mg PO DAILY 11/06/24 Unknown History (28) tablet (Slynd) Allergies Allergy/AdvReac Type Severity Reaction Status Date / Time latex Allergy Unknown Rash Verified 12/21/24 19:07 Review of Systems Review of Systems: CONSTITUTIONAL: Denies fever, chills, or sweats. EYES: Denies visual changes, redness, or discharge. ENT: Reports bilateral ear pain. Denies rhinorrhea, congestion, sore throat CARDIOVASCULAR: Denies chest pain, palpitations, or edema. RESPIRATORY: Denies cough or dyspnea. GASTROINTESTINAL: Denies abdominal pain, nausea, vomiting, or diarrhea. GENITOURINARY: Denies dysuria or hematuria. SKIN: Denies rash or itching. MUSCULOSKELETAL: Denies back pain, joint pain, or myalgia. NEUROLOGIC: Denies headache, numbness, dizziness, or weakness. PSYCHIATRIC: Denies anxiety or depression. [facility] Past Medical History Medical History Endometriosis Panic disorder Anxiety and depression ADHD (attention deficit hyperactivity disorder) Hx of migraines Ear infection Seasonal allergies Surgical History Surgical History No history of previous surgery Family History Family History Mother Family history non-contributory Other High cholesterol Social History Social History Smoking status: Never smoker Alcohol intake: never Substance use: never Living arrangements: with family Occupation/Education: student Gender identity (if verbalized by the patient): Female Spiritual care concerns: No Exam Narrative: GENERAL: Well-appearing, well-nourished, and in no acute distress. HEAD: Normocephalic, atraumatic. EYES: PERRLA and EOMI. ENT: Nares clear, no rhinorrhea or epistaxis. Mucous membranes moist. Oropharynx without tonsillar hypertrophy exudate or other lesions. Bilateral tympanic membranes are erythematous and bulging NECK: Supple. No adenopathy or masses. No carotid bruits or JVD CHEST: Clear to auscultation. No respiratory distress. No wheezes rales or rhonchi HEART: Regular rate and rhythm. No murmur heard. Normal peripheral pulses. ABDOMEN: Soft, nontender, nondistended, normal active bowel sounds. EXTREMITIES: Normal range of motion. No edema. SKIN: Warm, dry, no rash. NEURO: No focal deficits. Alert and oriented x3. PSYCH: Normal mood and affect. Course Course Emergency Course: This is a 19-year-old female who presented for evaluation of bilateral ear pain. She has evidence of otitis media on exam. Augmentin and cefdinir because diarrhea in the past. Concerned doxycycline could cause a similar response. Will discharge with Levaquin. Increase hydration. [id number] agents for symptom management. Follow up primary provider. Go to the ER for worsening symptoms. Patient in agreement with plan of care. Level of Care: Express Care Visit Vital Signs Vital signs: Vital Signs Temperature 36.4 C 12/21/24 19:06 Pulse Rate 92 12/21/24 19:06 Respiratory Rate 16 12/21/24 19:06 Blood Pressure 158/71 H 12/21/24 19:06 Pulse Oximetry 100 12/21/24 19:06 Oxygen Delivery Room Air 12/21/24 19:06 Temperature 36.4 C 12/21/24 19:06 Pulse Rate 92 12/21/24 19:06 Respiratory Rate 16 12/21/24 19:06 Blood Pressure 158/71 H 12/21/24 19:06 Pulse Oximetry 100 12/21/24 19:06 Oxygen Delivery Room Air 12/21/24 19:06 Medical Decision Making Vital Signs Vital Signs: Vital Signs Temperature 36.4 C 12/21/24 19:06 Pulse Rate 92 12/21/24 19:06 Respiratory Rate 16 12/21/24 19:06 Blood Pressure 158/71 H 12/21/24 19:06 Pulse Oximetry 100 12/21/24 19:06 Oxygen Delivery Room Air 12/21/24 19:06 Temperature 36.4 C 12/21/24 19:06 Pulse Rate 92 12/21/24 19:06 Respiratory Rate 16 12/21/24 19:06 Blood Pressure 158/71 H 12/21/24 19:06 Pulse Oximetry 100 12/21/24 19:06 Oxygen Delivery Room Air 12/21/24 19:06 Discharge Plan Discharge Clinical Impression: Otitis media Patient Disposition: Home, Self-Care Condition: Stable Instructions: Antibiotic Form, Ear Infection (ED) Patient Language: Portuguese Prescriptions: New levofloxacin 500 mg tablet 500 mg PO DAILY Qty: 10 0RF No Action Slynd 4 mg (28) tablet 4 mg PO DAILY Follow-up/Referrals: Juancho Scales MD [Physician] - Time of Disposition: 19:31
== END 2024-12-21 19:36 | disposition home or self-care (01) ==
PROVIDERS: Emergency Provider Nurse Practitioner
DX: H66.93 Otitis media, unspecified, bilateral (principal); N80.9 Endometriosis, unspecified
CPT/HCPCS: 99213; G0463

== ENCOUNTER 2025-06-30 13:33 | Emergency (ER) | payer OTHER, SELFPAY ==
[2025-06-30 13:40] VITALS: BP 162/69; PULSE 74; RESP 16; TEMP 36.6; O2SAT 100
--- NOTE | 2025-06-30 14:02 | ED.EAR ---
HPI - Ear Problem General Chief complaint: Ear Stated complaint: Ears Source: patient Mode of arrival: ambulatory Limitations: no limitations History of Present Illness HPI Narrative: 19 y/o female presented for c/o bilateral ear pain, right worse than left. Onset over 2 weeks. Says she has a history of ear infections. Denies ear drainage, tinnitus, dizziness, n/v/d/f/c. Complaint: ear pain Related Data Home Medications ?Medication ?Instructions ?Recorded ?Confirmed ?Last Taken ?Type drospirenone (contraceptive) 4 mg 4 mg PO DAILY 11/06/24 Unknown History (28) tablet (Slynd) Allergies Allergy/AdvReac Type Severity Reaction Status Date / Time latex Allergy Unknown Rash Verified 12/21/24 19:07 Review of Systems Review of Systems: CONSTITUTIONAL: Denies malaise, chills, or fever. EYES: Denies visual changes, redness, or discharge. ENT: Denies rhinorrhea, congestion, sinus pain, and sore throat. Reports ear pain CARDIOVASCULAR: Denies chest pain, palpitations, or edema. RESPIRATORY: Denies cough or dyspnea. GASTROINTESTINAL: Denies abdominal pain, nausea, vomiting, diarrhea SKIN: Denies rash or itching. MUSCULOSKELETAL: Denies myalgia. NEUROLOGIC: Denies headache. All systems reviewed & are unremarkable except as noted in HPI and below PMFSH Past Medical History Medical History Endometriosis Panic disorder Anxiety and depression ADHD (attention deficit hyperactivity disorder) Hx of migraines Ear infection Seasonal allergies Surgical History Surgical History No history of previous surgery Family History Family History Mother Family history non-contributory Other High cholesterol Social History Social History Smoking status: Never smoker Alcohol intake: never Substance use: never Living arrangements: with family Occupation/Education: student Gender identity (if verbalized by the patient): Female Spiritual care concerns: No Comments At time of signature, agree with nursing past medical, surgical, social and family history. There is no relevant family history pertinent to the presenting complaint Exam Narrative: GENERAL: Well-appearing EYES: PERRLA, conjunctivae clear ENT: Nares clear. Mucous membranes moist. Right TM erythematous with clear effusion, intact, not bulging; canal not erythematous, no drainage, no tragal tenderness. Oropharynx not erythematous without lesions. no drooling, no hoarseness, no trismus, uvula midline. NECK: Supple. No lymphadenopathy CHEST: Clear to auscultation, breath sounds equal. HEART: Regular rate and rhythm. No murmur heard. SKIN: Warm, dry, no rash. NEURO: Alert and oriented x3. PSYCH: Normal mood and affect Course Course Emergency Course: Patient is aware of diagnosis, understands and agrees to treatment plan. Anticipatory guidance given. Patient agrees to follow-up as directed and is aware of reasons to seek care at the emergency department. Portions of this record may have been created with voice recognition software Level of Care: Express Care Visit Vital Signs Vital signs: Vital Signs Temperature 97.8 F 06/30/25 13:40 Pulse Rate 74 06/30/25 13:40 Respiratory Rate 16 06/30/25 13:40 Blood Pressure 162/69 H 06/30/25 13:40 Pulse Oximetry 100 06/30/25 13:40 Oxygen Delivery Room Air 06/30/25 13:40 Temperature 97.8 F 06/30/25 13:40 Pulse Rate 74 06/30/25 13:40 Respiratory Rate 16 06/30/25 13:40 Blood Pressure 162/69 H 06/30/25 13:40 Pulse Oximetry 100 06/30/25 13:40 Oxygen Delivery Room Air 06/30/25 13:40 Reviewed Medical Decision Making MDM Narrative Medical decision making narrative: Discussed physical exam findings consistent with serous otitis, no infection noted.Advised supportive measures and signs/symptoms to go to the ER. Patient is appropriate for outpatient treatment and follow-up with ENT. Differential Diagnosis Differential Diagnosis: Coronavirus, strep pharyngitis, allergic rhinitis, upper respiratory tract infection, sinusitis, rhinosinusitis, nasopharyngitis, viral pharyngitis, otitis media, otitis externa, eustachian tube dysfunction, foreign body, cerumen impaction. Vital Signs Vital Signs: Vital Signs Temperature 97.8 F 06/30/25 13:40 Pulse Rate 74 06/30/25 13:40 Respiratory Rate 16 06/30/25 13:40 Blood Pressure 162/69 H 06/30/25 13:40 Pulse Oximetry 100 06/30/25 13:40 Oxygen Delivery Room Air 06/30/25 13:40 Temperature 97.8 F 06/30/25 13:40 Pulse Rate 74 06/30/25 13:40 Respiratory Rate 16 06/30/25 13:40 Blood Pressure 162/69 H 06/30/25 13:40 Pulse Oximetry 100 06/30/25 13:40 Oxygen Delivery Room Air 06/30/25 13:40 Discharge Plan Discharge Clinical Impression: Acute serous otitis media Patient Disposition: Home Condition: Stable Instructions: Antibiotic Form, Fluid In The Ear (Serous Otitis Media) (ED) Additional Instructions: Recommendations: antihistamine such as Zyrtec or [place]ina for sinus congestion Flonase nasal spray, 1 spray in each nostril once daily until symptoms improve Please schedule a follow-up visit with your personal physician and ENT. If your symptoms persist, change or worsen significantly, go to the emergency department for further evaluation. Patient Language: Italian Prescriptions: New cetirizine [Zyrtec] 10 mg tablet 10 mg PO DAILY PRN (Reason: congestion) Qty: 30 2RF No Action Slynd 4 mg (28) tablet 4 mg PO DAILY Follow-up/Referrals: Elinor Ferraro MD [Physician, Ear, Nose, Throat] PHYSICIAN,BONSAI CULTURIST [Primary Care Provider, Internal Medicine] Time of Disposition: 14:26
--- OUTSIDE RECORDS SUMMARY | 2025-06-30 16:05 | XMS_ITS | Encounter Summary ---
Author Organization [facility] Address [address] [place] [address] Phone Care Team Providers Care Dairy Inspector Name Role Phone Coleman Frank MD Primary Care Provider + [phone] Amy, Physician Primary Care Provider [phone] Coleman Frank MD Primary Care Provider + [phone] Kelsey Soria MD Primary Care Provider + [phone] No, Physician Primary Care Provider [phone] Encounter Details Date Type Department Care Team (Late st Contact Info) Description 06/23/2017 Orders Only [facility] [address] [place] [address] Coleman Frank MD [address] [place] [address] Elevated hemoglobin A1c (Primary Dx); Obesity peds (BMI >=95 percentile) Social History Tobacco Use Types Packs/Day Years Used Date Smoking Tobacco: Smoker, Current Status Unknown Alcohol Use Standard Drinks/Week Comments No 0 (1 standard drink = 0.6 oz pur e alcohol) Comments Unknown Sex and Gender Information Value Date Recorded Sex Assigned at Not on file Legal Sex Female 11:54 AM ROAST MASTER Gender Identity Not on file Sexual Orientation [...] documented as of this encounter Care Teams Dairy Inspector Relationship Specialty Start Date End Date Coleman Frank MD [address] [place] [address] PCP - General 01/13/17 03/17/20 Amy, Physician PCP - General 03/18/20 10/26/21 Coleman rFank MD [address] [place] [address] PCP - General 10/27/21 03/17/22 Kelsey Soria MD PCP - General Family Practice 03/18/22 09/02/23 Amy, Physician PCP - General 09/03/23 documented as of this encounter
--- OUTSIDE RECORDS SUMMARY | 2025-06-30 16:05 | XMS_ITS | Clinical Summary ---
Author Organization [facility] Address [facility] [place] [address] Care Team Providers Care Real Property Evaluator Name Role Phone None, Provider MD Primary [...] unspecified whether serious comorbidity present 01/30/2024 Immunizations Immunization Administration Dates Next Due [id number] (Pediarix) 07/07/2008,08/11/2006,0 2004 DTaP-IPV (Kinrix) 06/30/2009 Dtap [...] 8:10 PM CDT Height 157.5 cm (5' 2) 02/12/2024 8:10 PM CDT Body Mass Index 53.04 02/12/2024 8:10 PM CDT Plan of Treatment Health Maintenance Due Date Last Done Comments Annual Physical 2007 HPV Vaccines (1 - 3-dose series) 2019 Meningococcal B Vaccine (1 of 2 - Standard) 2020 Hepatitis C 2022 PHQ-2 (Physician [place]) 10/16/2024 COVID-19 Vaccine ( season) 2025 DTaP, Tdap and Td Vaccines (6 - Td or Tdap) 07/06/2026 07/06/2016, 06/30/2009, 06/30/2009, Additional history exists Pneumococcal Vaccine: Pediatrics (0 to 5 Years) and At-Risk Patients (6 to 49 Years) Aged Out 08/11/2006, 2004 No longer eligibl e based on patient's age to complete this topic Hepatitis B Vaccines Completed 07/07/2008, 07/07/2008, 08/11/2006, Additional history exists Meningococcal Vaccine Completed 07/25/2022, 016 RSV Immunizations Under 20 Months Aged Out No longer eligible based on patient's age to complete this topic Insurance JOSEPH Care Teams Real Property Evaluator Relationship Specialty Start Date End Date None, Provider, PCP - General UNKNOWN PHYSICIAN SPECIALTY 07/10/23
--- OUTSIDE RECORDS SUMMARY | 2025-06-30 16:05 | XMS_ITS | Clinical Summary ---
Author Organization [facility] [address] Address [address] [facility] [place] [address] Phone Care Team Providers Care Product Development Manager Name Role Phone No, Physician Primary Care Provider [phone] Allergies Active Allergy Reactions Criticality Noted Date Comments Cannabidiol (Cbd) Extract Anaphylaxis High 5 Chlorine Hives Medium 06/08/2022 Latex Rash Medium [...] mouth daily 84 tablet 3 5 Active ibuprofen (ADVIL,MOTRIN) 600 mg tablet Take 1 tablet (600 mg total) by mouth every 6 (six) hours as needed for pain 30 tablet 5 Active Active Problems Problem Noted Date [...] (06/24/2022 3:19 PM CDT): Hearing test at [place] Acute otitis externa of left ear 06/08/2022 [...] fibroids, thicken endometrium etc -will referred to flavor extractor for evaluation and treatment Elevated blood-pressure read [...] Obesity 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) Headache Depression PTSD (post-traumatic stress disorder) Anxiety Family History Medical History Relation Name Comments [...] making you feel afraid or unsafe? Denies 01/23/2025 Comments No Sex and Gender Information Value Date Recorded Sex Assigned at Not on file Legal Sex Female 11:54 AM CUSTOMER CARE CONSULTANT Gender Identity Not on file Sexual Orientation Not on file Obstetrics History Para Term AB IAB SAB Ectopic Multiple Livin g Live Births 0 0 0 0 0 0 0 0 0 0 0 Last Filed Vital Signs Vital Sign Reading Time Taken Comments Blood Pressure 145/92 01/23/2025 1:14 AM CDT Pulse 97 01/23/2025 1:14 AM CDT Temperature 36.7 C (98.1 F) 01/23/2025 1:14 AM CDT Respiratory Rate 16 01/23/2025 1:14 AM CDT Oxygen Saturation 97% 01/23/2025 1:14 AM CDT Inhaled Oxygen Concentration - - Weight 124.7 kg (275 lb) 01/23/2025 1:14 AM CDT Height 159.4 cm (5' 2.75) 01/23/2025 1:14 AM CD T Body Mass Index 49.1 01/23/2025 1:14 AM CDT Plan of Treatment Health Maintenance Due Date Last Done Comments Hepatitis C Screening 2004 HPV Vaccines (1 - 3-dose series) 2019 Meningococcal B Vaccine (1 o f 2 - Standard) 2020 Depression Screening 08/16/2023 08/16/2022, 03/18/20 22 Regular Well Visit/Exam 18-64 08/16/2023 08/16/2022 Influenza Vaccine (#1) 2025 DTaP/Tdap/Td Vaccine (6 - Td or Tdap) 07/06/2026 07/06/2016, 06/30/2009, 06/30/2009, Additional history exists Pneumococcal vaccine <65 Completed 08/11/2006, 11/16 Hepatitis B Screening Completed 07/07/2008 , 07/07/2008, 08/11/2006, Additional history exists Varicella Vaccines Completed 06/30/2009, 1 , 08/11/2006 Meningococcal Vaccine Completed 07/25/2022, 09/21/2 016 Insurance [facility] [address] Member Subscriber Plan / Payer (Ef fective 2015-Present) Name:Ludy Mena Relation to Subscriber:Self Name:Ludy Mena Payer ID:[id number] (NAIC) Type:MEDICAID RISK OTHER Address: [address] Care Teams Product Development Manager Relationship Specialty Start Date End Date No, Physician PCP - General 09/03/23
--- OUTSIDE RECORDS SUMMARY | 2025-06-30 16:05 | XMS_ITS | Clinical Summary ---
Author Organization [facility] Address [address] [place] [address] Phone Care Team Providers Care Torts Law Professor Name Role Phone Provider, None Primary Care [...] Comments Blood Pressure 136/88 09/03/2020 3:45 AM STOCKFEED MILLER Pulse 91 09/03/2020 3:45 AM STOCKFEED MILLER Temperature 37.6 C (99.7 F) 09/03/2020 2:33 AM STOCKFEED MILLER Respiratory Rate 18 09/03/2020 3:45 AM STOCKFEED MILLER Oxygen Saturation 94% 09/03/2020 3:45 AM STOCKFEED MILLER Inhaled Oxygen Concentration - - Weight 287 kg (632 lb 11.5 oz) 09/03/2020 2:33 A M STOCKFEED MILLER Height 157.5 cm (5' 2) 09/03/2020 2:33 AM STOCKFEED MILLER Body Mass Index 115.73 09/03/2020 2:33 AM STOCKFEED MILLER Plan of Treatment Upcoming Encounters Date Type Department Care Team (Latest Contact Info) Description 07/21/2025 3:00 PM CDT Outpatient Clinic Visit [facility] [address] [place] [address] Risa Madden, [facility] [address] [place] [address] Discharge Disposition: Discharged to home or Selfcare Health Maintenance Due Date Last Done Comments Hepatitis C Virus (HCV) Screening 2004 Human Papillomavirus (HPV) Immunization (1 - 3-dose series) 2019 Meningococcal B Immunization (1 of 2 - Standard) 2020 Influenza Immunization (#1) 2025 SARS-COV-2 Immunization ( season) 2025 Respiratory Syncytial Virus (RSV) Immunization (Adult) (1 [...] Discontinued 2015, 06/30/2009, 07/07/2008, Additional history exists TdaP Immunization Completed 07/06/2016 Meningococcal Immunization (ACWY) Completed 07/25/2022, 07/06/2016 Rotavirus Immunization Aged Out No lo nger eligible based on patient's age to complete this topic Insurance MEDICAID [place] Care Teams Torts Law Professor Relationship Specialty Start Date End Date Provider, None [place] PCP - General 07/11/19
== END 2025-06-30 14:30 | disposition home or self-care (01) ==
PROVIDERS: Emergency Provider Nurse Practitioner Family
DX: H65.01 Acute serous otitis media, right ear (principal); N80.9 Endometriosis, unspecified
CPT/HCPCS: 99213; G0463

== ENCOUNTER 2025-09-06 17:39 | Emergency (ER) | payer OTHER, SELFPAY ==
--- NOTE | ~2025-09-06 | XR_ITS ---
EXAMINATION: XR abdomen obstructive series, 09/06/2025 18:10 CITY SUPERINTENDENT HISTORY: abdominal pain-BILATERAL MID LEVEL COMPARISON: No comparisons available. Technique: 3 view. Findings: Bowel gas pattern unremarkable. No obstruction. No free air. No abnormal calcifications No acute osseous abnormality. Impression: 1. No acute abnormality. Reviewed, dictated and finalized at location P. SUPERINTENDENT Impression: 1. No acute abnormality.
--- OUTSIDE RECORDS SUMMARY | 2025-09-06 17:41 | XMS_ITS | Clinical Summary ---
Author Organization [facility] [address] Address [address] [place] [address] Phone Care Team Providers Care Can Repairer Name Role Phone No, Physician Primary Care Provider [phone] Allergies Active Allergy Reactions Criticality Noted Date [...] (06/24/2022 3:19 PM CDT): Hearing test at [place] Acute otitis externa of left ear 06/08/2022 [...] fibroids, thicken endometrium etc -will referred to fiscal economist for evaluation and treatment Elevated blood-pressure read [...] on file Legal Sex Female 11:54 AM WIRE TESTER Gender Identity Not on file Sexual Orientation [...] Health Maintenance Due Date Last Done Comments Cervical Cancer Screening 2004 Hepatitis C Screening 2004 HPV Vaccines (1 [...] , 08/11/2006 Meningococcal Vaccine Completed 07/25/2022, 016 Insurance [facility] Member Subscriber Plan / Payer (Ef fective 2015-Present) Name:Ludy Mena Relation to Subscriber:Self Name:Ludy Mena Payer ID:[id number] (NAIC) Type:MEDICAID RISK OTHER Address: [address] [facility] Care Teams Can Repairer Relationship Specialty Start Date End Date No, Physician PCP - General 09/03/23
--- OUTSIDE RECORDS SUMMARY | 2025-09-06 17:41 | XMS_ITS | Encounter Summary ---
Author Organization [facility] Address [address] [place] [address] Phone Care Team Providers Care Lead Infrastructure Architect Name Role Phone Coleman Frank MD Primary Care Provider [phone] Amy, Physician Primary Care Provider [phone] Coleman Frank MD Primary Care Provider [phone] Kelsey Soria MD Primary Care Provider + [phone] No, Physician Primary Care Provider [phone] Encounter Details Date Type Department Care Team (Late st Contact Info) Description 06/23/2017 Orders Only [facility] [address] [place] [address] Coleman Frank MD [address] [place] [address] Elevated hemoglobin A1c (Primary Dx); Obesity peds (BMI >=95 percentile) Social History Tobacco Use Types Packs/Day Years Used Date Smoking Tobacco: Smoker, Current Status Unknown Alcohol Use Standard Drinks/Week Comments No 0 (1 standard drink = 0.6 oz pur e alcohol) Comments Unknown Sex and Gender Information Value Date Recorded Sex Assigned at Not on file Legal Sex Female 11:54 AM CORPORATE SPECIALIST Gender Identity Not on file Sexual Orientation Not on file documented as of this encounter Functional Status documented as of this encounter Plan of [...] documented as of this encounter Care Teams Lead Infrastructure Architect Relationship Specialty Start Date End Date Coleman Frank MD [address] [place] [address] PCP - General 01/13/17 03/17/20 No, Physician PCP - General 03/18/20 10/26/21 Coleman Frank MD [address] [place] [address] PCP - General 10/27/21 03/17/22 Kelsey Soria MD PCP - General Family Practice 03/18/22 09/02/23 No, Physician PCP - General 09/03/23 documented as of this encounter
--- OUTSIDE RECORDS SUMMARY | 2025-09-06 17:41 | XMS_ITS | Clinical Summary ---
Author Organization [facility] Address [address] [place] [address] Phone Care Team Providers Care Door Serviceman Name Role Phone Provider, None Primary Care [...] needed for Anxiety. 15 Tab 09/03/2020 Active Active Problems Problem Noted Date Diagnosed Date MANUEL (generalized anxiety disorder) 07/21/2025 Chronic post-traumatic stress disorder (PTSD) Encounters Date Type Department Care Team Description 08/19/2025 4:15 PM INDUSTRIAL MACHINERY MECHANIC Outpatient Clinic Visit [facility] [address] [place] [address] Risa Madden LCPC MAUNEL (generalized anxiety disorder) (Primary Dx) Discharge Disposition: Discharged to home or Selfcare 08/19/2025 Travel 08/05/2025 12:00 PM CDT Outpatient Clinic Visit [facility] [address] [place] [address] Risa Madden LCPC MANUEL (generalized anxiety disorder) (Primary Dx); Chronic post-traumatic stress disorder (PTSD) Discharge Disposition: Discharged to home or Selfcare 08/05/2025 Travel 07/21/2025 3:00 PM CDT Outpatient Clinic Visit [facility] [address] [place] [address] Risa Madden, [facility] MANUEL (generalized anxiety disorder) (Primary Dx); Chronic post-traumatic stress disorder (PTSD) Discharge Disposition: Discharged to home or Selfcare 07/21/2025 Travel from Last 3 Months Family History Medical History Relation Name Comments ADD / ADHD Father Alan (64) Alcohol Abuse Father Alan (64) Cancer Father Alan (64) Depression Father Alan (64) ptsd Father Alan (64) ADD / ADHD Mother Catracho (65) Alcohol Abuse Mother Catracho (65) Anxiety disorder Mother Catracho (65) Depression Mother Catracho (65) Mental Disorder, Other Mother Catracho (65) Multiple Sclerosis Mother Catracho (65) ptsd Mother Catracho (65) mental health Sister 1 Pt also has 5 maternal half sibling and 3 paternal hald siblings) Autism Sister 2 Depression Sister 2 Relation Name Status Comments Father Alan (64) Alive Mother Catracho (65) Alive Sister 1 Alive Sister 2 Alive Social History Tobacco Use Types Packs/Day Years Used Date Smoking Tobacco: Never Smokeless Tobacco: Never Alcohol Use Standard Drinks/Week Comments Never 0 (1 standard drink = 0.6 oz pur e alcohol) AUDIT-C Answer Date Recorded Frequency of Alcohol Consumption Never 03/01/2019 Average Number of Drinks Not on file 019 Frequency of Binge Drinking Not on file 02/13 Sexually Active Control Partners Comments Not Currently Comments No Sex and Gender Information Value Date Recorded Sex Assigned at Not on file Legal Sex Female 7:06 PM CDT Gender Identity Not on file Sexual Orientation Not on file Last Filed Vital Signs Vital Sign Reading Time Taken Comments Blood Pressure 136/88 09/03/2020 3:45 AM INDUSTRIAL MACHINERY MECHANIC Pulse 91 09/03/2020 3:45 AM INDUSTRIAL MACHINERY MECHANIC Temperature 37.6 C (99.7 F) 09/03/2020 2:33 AM INDUSTRIAL MACHINERY MECHANIC Respiratory Rate 18 09/03/2020 3:45 AM INDUSTRIAL MACHINERY MECHANIC Oxygen Saturation 94% 09/03/2020 3:45 AM INDUSTRIAL MACHINERY MECHANIC Inhaled Oxygen Concentration - - Weight 287 kg (632 lb 11.5 oz) 09/03/2020 2:33 A M INDUSTRIAL MACHINERY MECHANIC Height 157.5 cm (5' 2) 09/03/2020 2:33 AM INDUSTRIAL MACHINERY MECHANIC Body Mass Index 115.73 09/03/2020 2:33 AM INDUSTRIAL MACHINERY MECHANIC Plan of Treatment Upcoming Encounters Date Type Department Care Team (Latest Contact Info) Description 09/10/2025 3:00 PM INDUSTRIAL MACHINERY MECHANIC Outpatient Clinic Visit [facility] [address] [place] [address] Risa Madden LCPC [address] [facility] [place] [address] Discharge Disposition: Discharged to home or Selfcare Health Maintenance Due Date Last Done Comments Hepatitis C Virus (HCV) Screening 2004 Human Papillomavirus (HPV) Immunization (1 - 3-dose series) 2019 Meningococcal B Immunization (1 of 2 - Standard) 2020 Influenza Immunization (#1) 2025 SARS-COV-2 Immunization ( - season) 2025 Pap Smear 2025 Respiratory Syncytial Virus (RSV) Immunization (Adult) (1 - 1-dose 75+ series) 2079 Pneumococcal Immunization Combined Aged Out 08/11/2006, 2004 No longer eligibl e based on patient's age to complete this topic Hepatitis A Immunization Discontinued 008, 08/11/2006, 08/11/2006 Hepatitis B Immunization Completed 008, 07/07/2008, 08/11/2006, Additional history exists Measles Mumps Rubella (MMR) Immunization Discontinued 06/30/2009, 08/11/2006, 08/11/2006 Polio (IPV) Immunization Discontinued 009, 07/07/2008, 07/07/2008, Additional history exists Varicella Immunization Completed 9, 08/11/2006, 08/11/2006 DTaP/Tdap/Td Immunization Discontinued 2015, 06/30/2009, 06/30/2009, Additional history exists TdaP Immunization Completed 07/06/2016 Meningococcal Immunization (ACWY) Completed 07/25/2022, 07/06/2016 Rotavirus Immunization Aged Out No lo nger eligible based on patient's age to complete this topic Goals Goal Patient Goal Type Associated Problems Recent Progress Patient-Stated? Author ANXIETY Anxiety On track( 025 6:00 PM INDUSTRIAL MACHINERY MECHANIC) Yes Risa Madden LCPC Note: Move forward, know what to do with symptoms Gain more coping skills Goal/Objective: Improve coping. Anticipated Time Frame for Goal Completion: 6 months Goal Reviewed with: patient Readiness to change: Ready to change Department associated with goal: [facility] Steps to achieve goal: will attend counseling/psychotherapy sessions at least once monthly, at least 6 sessions, utilizing individual and/or group sessions to express thoughts and feelings. to identify, verbalize and process at least three contributing factors/triggers to anxiety and depression. to identify and verbalize at least three actions/skills to prevent and/or cope with anxiety and depression. to put into action, at least one time weekly, for one month, an action/skill to prevent and or cope with anxiety and depression. Insurance MEDICAID [place] Care Teams Door Serviceman Relationship Specialty Start Date End Date Provider, None [place] PCP - General 07/11/19
[2025-09-06 17:43] VITALS: BP 151/77; PULSE 92; RESP 18; TEMP 36.3; O2SAT 100
--- NOTE | 2025-09-06 17:55 | ED.ABDPAIN ---
HPI - Abdominal Pain General Chief Complaint: Abdominal Pain Stated Complaint: Abdominal Pain Time Seen by Provider: 09/06/25 17:55 Source: patient, RN notes reviewed and old records reviewed Mode of arrival: ambulatory Limitations: no limitations History of Present Illness HPI narrative: 20 year old female accompanied by mother presents to express care with complaints of pain to the left side of her abdomen which started this morning. Patient reports that pain has varied throughout the day and has had some radiation of her pain to the right side of her abdomen. Patient reports that she started her menses on morning and bleeding has been heavier than usual. Patient reports that she was given diagnosis of endometriosis when she was 15 and did have internal and external ultrasounds done at [facility]. Patient reports no UTI symptoms of dysuria or any flank pain or any urinary frequency or urgency. Patient reports that she took Ibuprofen at 1400 last today. MD elicited complaint: abdominal pain Pertinent past history: other (endometriosis) Onset (ago): day(s) (this morning) Location: RLQ and LLQ Pain scale (0-10): 5 Quality: aching and sharp (at times) Treatments prior to arrival: NSAIDs (1400) Related Data Allergies Allergy/AdvReac Type Severity Reaction Status Date / Time cannabidiol (CBD) extract Allergy Severe Anaphylaxis Verified 09/06/25 19:47 latex Allergy Unknown Rash Verified 09/06/25 19:47 chlorine Allergy Intermediate Hives Uncoded 09/06/25 17:59 Review of Systems Review of Systems: CONSTITUTIONAL: Denies fever, chills, or sweats. EYES: Denies visual changes, redness, or discharge. ENT: Denies rhinorrhea, congestion, sore throat, or otalgia. CARDIOVASCULAR: Denies chest pain, palpitations, or edema. RESPIRATORY: Denies cough or dyspnea. GASTROINTESTINAL: Reports left upper mid abdominal pain starting this morning which has then starting radiating to the right side of her abdomen, no nausea, vomiting, or diarrhea. Patient reports normal BM today. GENITOURINARY: Denies dysuria or hematuria. SKIN: Denies rash or itching. MUSCULOSKELETAL: Denies back pain, joint pain, or myalgia. NEUROLOGIC: Denies headache, numbness, or weakness. PSYCHIATRIC: Positive for history of anxiety or depression. All systems reviewed & are unremarkable except as noted in HPI and below PMFSH Past Medical History Medical History Endometriosis Panic disorder Anxiety and depression ADHD (attention deficit hyperactivity disorder) Hx of migraines Ear infection Seasonal allergies Surgical History Surgical History No history of previous surgery Family History Family History Mother Family history non-contributory Other High cholesterol Social History Social History Smoking status: Never smoker Alcohol intake: never Substance use: never Living arrangements: with family Occupation/Education: student Gender identity (if verbalized by the patient): Female Spiritual care concerns: No Comments At time of signature, agree with nursing past medical, surgical, social and family history. There is no relevant family history pertinent to the presenting complaint Exam Narrative: GENERAL: Well-appearing, well-nourished, and in no acute distress. HEAD: Normocephalic, atraumatic. EYES: PERRLA and EOMI. ENT: Nares clear, no rhinorrhea or epistaxis. Mucous membranes moist. NECK: Supple.no lymphadenopathy CHEST: Clear to auscultation. No respiratory distress.SAO2 100% on room air HEART: Regular rate and rhythm. No murmur heard. Normal peripheral pulses. ABDOMEN: Soft, tender left abdomen on palpation, mild tenderness to right mid abdomen, no McBurney point tenderness, nondistended, normal active bowel sounds. EXTREMITIES: Normal range of motion. No edema. SKIN: Warm, dry, no rash. NEURO: No focal deficits. Alert and oriented x3. Course Course Emergency Course: Patient is aware of diagnosis, understands and agrees to treatment plan.? Anticipatory guidance given.? Patient agrees to follow-up as directed and is aware of reasons to seek care at the emergency department. Portions of this record may have been created with voice recognition software Level of Care: Express Care Visit Vital Signs Vital signs: Vital Signs Temperature 36.3 C L 09/06/25 17:43 Pulse Rate 92 09/06/25 17:43 Respiratory Rate 18 09/06/25 17:43 Blood Pressure 151/77 H 09/06/25 17:43 Pulse Oximetry 100 09/06/25 17:43 Oxygen Delivery Room Air 09/06/25 17:43 Temperature 36.3 C L 09/06/25 17:43 Pulse Rate 92 09/06/25 17:43 Respiratory Rate 18 09/06/25 17:43 Blood Pressure 151/77 H 09/06/25 17:43 Pulse Oximetry 100 09/06/25 17:43 Oxygen Delivery Room Air 09/06/25 17:43 Reviewed Transfer Transfered to: [place] Transportation: Other (private car with mother) Transfer rationale: abdominal pain further testing Accepting physician: Dr Orellana Transfer comments: private car with mother MDM - Abdominal Pain MDM Narrative Medical decision making narrative: 1849 Call placed to the ED at [facility] with report of present condition VS, PMH and test results with Dr Orellana accepting patient for transfer Differential Diagnosis Differential diagnosis: Likely abdominal pain, endometriosis, small bowel obstruction and other (colitis, ovarian cyst, torsion) Medical Records Attestation: I reviewed the patient's medical records. Lab Data Attestation: I reviewed the patient's lab results. Lab results narrative: test urine negative Imaging Data Attestation: I personally reviewed and interpreted this imaging study as follows: My impression: no acute abnormality Radiologist's impression: ITS Impressions Abdomen X-Ray 09/06/25 18:44 Impression: 1. No acute abnormality. [address] [place] [address] XRay Report Signed Patient: Ludy Frias : 2005 MR#: [id number] Age: 20 Acct:[id number] Loc: [facility] ADM Date: 09/06/[address]: Ordering Physician: Faby Atkins HOUSING CASE MANAGER Date of Service: 09/06/25 Procedure(s): XR abdomen obstructive series Accession Number(s): [id number] cc: BIOLOGICAL SCIENCE TECHNICIAN PHYSICIAN; Faby Atkins HOUSING CASE MANAGER~ EXAMINATION: XR abdomen obstructive series, 09/06/2025 18:10 CONSTRUCTION TRENCH DIGGER HISTORY: abdominal pain-BILATERAL MID LEVEL COMPARISON: No comparisons available. Technique: 3 view. Findings: Bowel gas pattern unremarkable. No obstruction. No free air. No abnormal calcifications No acute osseous abnormality. Impression: 1. No acute abnormality. Reviewed, dictated and finalized at location P. TRUCTION TRENCH DIGGER Please be advised this is a medical document. It is intended for [id number] communication. It is written in medical language and may contain unfamiliar abbreviations or verbiage. Medical documents are intended to carry relevant information, facts as evident, and the clinical opinion of the practitioner at the time of the encounter. This report may have been done utilizing a voice recognition system. Attempts have been made to correct errors. However, there may be uncorrected grammatical, spelling, and recognition errors present. The file time of this note does not necessarily represent the time of service. Dictated By: Jude Morse MD 09/06/25 1844 Signed By: <Electronically signed by Jude Morse MD in OV> Critical Care Time Critical Care Time Critical Care Time: No Discharge Plan Discharge Clinical Impression: Abdominal pain Qualifiers: Abdominal location: lower abdomen, unspecified Qualified Code(s): R10.30 - Lower abdominal pain, unspecified Patient Disposition: Acute Care Hospital Condition: Stable Patient Language: Belarusian Prescriptions: No Action cetirizine [Zyrtec] 10 mg tablet 10 mg PO DAILY PRN (Reason: congestion) Qty: 30 2RF nitrofurantoin monohyd/m-cryst [Macrobid] 100 mg capsule 100 mg PO Q12H 5 Days Qty: 10 0RF Rx Instructions: must administer with a meal/food ondansetron 4 mg tablet,disintegrating 4 mg PO Q6H PRN (Reason: nausea and vomiting) Qty: 10 0RF Follow-up/Referrals: PHYSICIAN,BIOLOGICAL SCIENCE TECHNICIAN [Primary Care Provider, Internal Medicine] Time of Disposition: 19:00 Quality Claire Coma Scale Eyes: Open Verbal: Oriented and Alert Motor: Follows Commands Claire Coma Total Score: 15
[2025-09-08 11:49] LABS: BEDSIDEPREGUCG Negative (Negative)
== END 2025-09-06 19:00 | disposition short-term general hospital (02) ==
PROVIDERS: Emergency Provider Registered Nurse
DX: R10.31 Right lower quadrant pain (principal); R10.32 Left lower quadrant pain; N80.9 Endometriosis, unspecified
CPT/HCPCS: 74019; 81025; 99213; G0463

== ENCOUNTER 2025-09-06 19:46 | Emergency (ER) | payer OTHER, SELFPAY ==
--- NOTE | ~2025-09-06 | CT_ITS ---
EXAMINATION: CT abdomen pelvis w con DATE: 09/06/2025 23:03 INDICATION: Low abdominal pain. TECHNIQUE: Computed tomography (CT) of the abdomen and pelvis was performed with 100 mL Omnipaque 350 intravenous contrast. Automated exposure control and iterative reconstruction technique were employed. The dose-length product was 1728.49 mGy-cm. COMPARISON: None. FINDINGS: The visualized portions of lung bases are clear without pneumonia or pleural effusion. The heart size is normal. No pericardial effusion. The liver, gallbladder, spleen, pancreas, adrenal glands, and kidneys are normal. There are no dilated loops of bowel. The appendix is normal. There are no pathologically enlarged lymph nodes. There is no free intraperitoneal fluid. There is mild lumbar spondylosis. IMPRESSION: 1. No etiology for the patient's symptoms. Reviewed, dictated and finalized at location E. ARY MEDIA ASSISTANT
[2025-09-06 19:52] VITALS: BP 140/108; PULSE 95; RESP 22; TEMP 36.2; O2SAT 99
--- NOTE | 2025-09-06 20:56 | PC.NURSE ---
Pt is a hard stick multiple nurses attempted, unsuccessful RN with ultrasound to attempt.
--- NOTE | 2025-09-06 21:01 | ED_ITS ---
HPI - Abdominal Pain General Chief Complaint: Abdominal Pain Stated Complaint: abd pain/vaginal bleeding Time Seen by Provider: 09/06/25 20:35 Source: patient Mode of arrival: ambulatory Limitations: no limitations History of Present Illness HPI narrative: This is a 20 year old female that presents to the ER for right sided lower abdominal pain. Ongoing since earlier today. Denies vomiting, diarrhea. Related Data Allergies Allergy/AdvReac Type Severity Reaction Status Date / Time cannabidiol (CBD) extract Allergy Severe Anaphylaxis Verified 09/06/25 19:47 latex Allergy Unknown Rash Verified 09/06/25 19:47 chlorine Allergy Intermediate Hives Uncoded 09/06/25 17:59 Review of Systems 2 Review of Systems: All systems reviewed & are unremarkable except as noted in HPI and below PMFSH Past Medical History Medical History Endometriosis Panic disorder Anxiety and depression ADHD (attention deficit hyperactivity disorder) Hx of migraines Ear infection Seasonal allergies Surgical History Surgical History No history of previous surgery Family History Family History Mother Family history non-contributory Other High cholesterol Social History Social History Smoking status: Never smoker Alcohol intake: never Substance use: never Living arrangements: with family Occupation/Education: student Gender identity (if verbalized by the patient): Female Spiritual care concerns: No Exam 2 Narrative: GENERAL: Well-appearing, well-nourished, and in no acute distress. HEAD: Normocephalic, atraumatic. EYES: EOMI. CHEST: Clear to auscultation. No respiratory distress. No wheezes rales or rhonchi HEART: Regular rate and rhythm. No murmur heard. Normal peripheral pulses. ABDOMEN: Soft, nondistended, normal active bowel sounds. Tender to palpation throughout the lower abdomen, without guarding EXTREMITIES: Normal range of motion. No edema. SKIN: Warm, dry, no rash. NEURO: No focal deficits. Alert and oriented x3. PSYCH: Normal mood and affect Course Course Emergency Course: Patient and family do not wish to stay for imaging results. Will be signing out AMA Vital Signs Vital signs: Vital Signs Temperature 97.2 F L 09/06/25 19:52 Pulse Rate 95 09/06/25 19:52 Respiratory Rate 22 H 09/06/25 19:52 Blood Pressure 140/108 H 09/06/25 19:52 Pulse Oximetry 99 09/06/25 19:52 Oxygen Delivery Room Air 09/06/25 19:52 Temperature 97.2 F L 09/06/25 19:52 Pulse Rate 95 09/06/25 19:52 Respiratory Rate 22 H 09/06/25 19:52 Blood Pressure 140/108 H 09/06/25 19:52 Pulse Oximetry 99 09/06/25 19:52 Oxygen Delivery Room Air 09/06/25 19:52 MDM - Abdominal Pain MDM Narrative Medical decision making narrative: Patient presents to the emergency department for lower abdominal pain. She is afebrile and nontoxic appearing. CBC with mild leukocytosis to 10.9. Metabolic panel without concerning findings. Lipase is normal. Urine with 11-20 white blood cells. This will be sent for culture. Pending CT results patient's family member started to become angry and hostile with staff. Patient will be signing out AMA pending her imaging results. I will treat her for UTI Differential Diagnosis Differential diagnosis: Likely acute appendicitis, calculus of kidney, diverticulitis and other (UTI) Lab Data Attestation: I reviewed the patient's lab results. 09/06/25 21:20 09/06/25 21:20 Labs: Lab Results 09/06/25 09/06/25 Range/Units 20:56 21:20 WBC 10.9 H (4.5-10.0) K/mm3 RBC 4.99 (4.2-5.4) M/mm3 Hgb 14.3 (12.0-15.0) g/dL Hct 43.3 (37.0-47.0) % MCV 86.8 (80-100) fl MCH 28.7 (26-34) pg MCHC 33.0 (32-36) g/dl RDW 13.0 (11.5-14.5) % Plt Count 373 (150-375) k/mm3 MPV 9.9 (7.4-10.4) fl Immature Gran % (Auto) 0.4 (0-0.5) % Neut % (Auto) 61.3 (45.5-73.1) % Lymph % (Auto) 31.2 (18.3-44.2) % [place] % (Auto) 5.6 (2.6-8.5) % Eos % (Auto) 1.3 (0-4.4) % Baso % (Auto) 0.2 (0.2-1.2) % Lymph # (Auto) 3.39 H (0.9-3.2) K/mm3 [place] # (Auto) 0.6 (0.1-0.6) K/mm3 Eos # (Auto) 0.1 (0-0.3) K/mm3 Baso # (Auto) 0.0 (0.0-0.1) K/mm3 Abs Immat Gran (auto) 0.04 H (0.00-0.031) K/mm3 Absolute Neuts (auto) 6.7 (1.3-6.7) K/mm3 Absolute Nucleated RBC 0.000 (0.0-0.012) K/mm3 Nucleated RBC % 0.0 (0.0-0.2) % Sodium 138 (137-145) mmol/L Potassium 3.8 (3.4-5.0) mmol/L Chloride 102 (98-107) mmol/L Carbon Dioxide 26 (22-30) mmol/L Anion Gap 10 (4-12) mmol/L BUN 14 (7-17) mg/dL Creatinine 0.81 (0.7-1.0) mg/dL Estim Creat Clear Calc 134 ml/min Estimated GFR > 60 (59 - ) Glucose 101 (65-110) mg/dL Calcium 9.3 (8.4-10.2) mg/dL Total Bilirubin 0.3 (0.2-1.3) mg/dL AST 46 H (14-36) U/L ALT 34 (6-35) U/L Alkaline Phosphatase 79 (38-126) U/L Total Protein 8.1 (6.3-8.2) g/dL Albumin 4.6 (3.5-5.1) g/dL Lipase 101 (23-300) U/L Urine Color [place] H (Yellow) Urine Appearance Cloudy H (Clear) Urine pH 5.5 (5.0-9.0) Ur Specific [place] 1.018 (1.001-1.035) Urine Protein 1+ H (Negative) mg/dL Urine Glucose (UA) Negative (Negative) mg/dL Urine Ketones Negative (Negative) mg/dL Ur Blood (Man) 3+ H (Negative) Urine Nitrate Negative (Negative) Urine Bilirubin Negative (Negative) Urine Urobilinogen 0.2 (<2.0) mg/dL Add Ur Microanalysis Reviewed Leukocyte Esterase Rfl 1+ H (Negative) DEVI/UL Urine RBC 51-100 H (0-2) /hpf Urine WBC 11-20 H (0-3) /hpf Ur Squamous Epith Cells Few (Few) /hpf Urine Bacteria 1+ H /hpf Urine Casts 0-2 Urine Mucus Present /lpf Critical Care Time Critical Care Time Critical Care Time: No Discharge Plan Discharge Clinical Impression: Abdominal pain Qualifiers: Abdominal location: lower abdomen, unspecified Qualified Code(s): R10.30 - Lower abdominal pain, unspecified Patient Disposition: Left Against Medical Advice Condition: Guarded Prognosis Instructions: Antibiotic Form, Urinary Tract Infection in Women (ED) Additional Instructions: Return to the ER at any time for further management Take oral antibiotic as prescribed Follow up with primary care doctor Patient Language: French Prescriptions: New nitrofurantoin monohyd/m-cryst [Macrobid] 100 mg capsule 100 mg PO Q12H 5 Days Qty: 10 0RF Rx Instructions: must administer with a meal/food ondansetron 4 mg tablet,disintegrating 4 mg PO Q6H PRN (Reason: nausea and vomiting) Qty: 10 0RF No Action cetirizine [Zyrtec] 10 mg tablet 10 mg PO DAILY PRN (Reason: congestion) Qty: 30 2RF Follow-up/Referrals: Freedom Campuzano MD [Physician, Family Practice] PHYSICIAN,MOLDING PROCESS TECHNICIAN [Non-Staff, Internal Medicine]
[2025-09-06 21:12] LABS: Add Urine Microscopic? YES; Appearance Urine Cloudy (Clear); Glucose Urine UA Negative (Negative); Leukocyte Esterase Ur 1+ LEU/UL (Negative); Need Manual Microscopic Reviewed; Nitrate Urine Negative (Negative); Non Pathogenic Casts 0-2; Specific Grav Ur 1.018 (1.001-1.035)
--- OUTSIDE RECORDS SUMMARY | 2025-09-06 21:21 | XMS_ITS | Encounter Summary ---
Author Organization [facility] Address [address] [place] [address] Phone Care Team Providers Care Machine Adjuster Leader Case Trim Name Role Phone Coleman Frank MD Primary Care Provider + [phone] Amy, Physician Primary Care Provider [phone] Coleman Frank MD Primary Care Provider + [phone] Kelsey Soria MD Primary Care Provider + [phone] No, Physician Primary Care Provider [phone] Encounter Details Date Type Department Care Team (Late st Contact Info) Description 06/23/2017 Orders Only [facility] [address] [place] [address] Coleman Frank MD [address] [place] [address] Elevated hemoglobin A1c (Primary Dx); Obesity peds (BMI >=95 percentile) Social History Tobacco Use Types Packs/Day Years Used Date Smoking Tobacco: Smoker, Current Status Unknown Alcohol Use Standard Drinks/Week Comments No 0 (1 standard drink = 0.6 oz pur e alcohol) Comments Unknown Sex and Gender Information Value Date Recorded Sex Assigned at Not on file Legal Sex Female 11:54 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
--- OUTSIDE RECORDS SUMMARY | 2025-09-06 21:21 | XMS_ITS | Clinical Summary ---
Author Organization [facility] [email or web address] Address [address] [place] [address] Phone Care Team Providers Care Hatchery Attendant Name Role Phone No, Physician Primary Care Provider [phone] Allergies Active Allergy Reactions Criticality Noted Date [...] (06/24/2022 3:19 PM CDT): Hearing test at [facility] Acute otitis externa of left ear 06/08/2022 [...] fibroids, thicken endometrium etc -will referred to stapling machine operator for evaluation and treatment Elevated blood-pressure read [...] on file Legal Sex Female 11:54 AM GM Gender Identity Not on file Sexual Orientation [...] 08/11/2006 Meningococcal Vaccine Completed 07/25/2022, [address] [facility] Member Subscriber Plan / Payer (Ef fective 2015-Present) Name:Ludy Mena Relation to Subscriber:Self Name:Ludy Mena Payer ID:[id number] (NAIC) Type:MEDICAID RISK OTHER Address: [address] [facility] Care Teams Hatchery Attendant Relationship Specialty Start Date End Date No, Physician PCP - General 09/03/23
--- OUTSIDE RECORDS SUMMARY | 2025-09-06 21:21 | XMS_ITS | Clinical Summary ---
Author Organization [facility] Address [address] [place] [address] Phone Care Team Providers Care Coat Baster Name Role Phone Provider, None Primary Care [...] Department Care Team Description 08/19/2025 4:15 PM STEP DOWN SPECIALIST Outpatient Clinic Visit [facility] [address] [place] [address] Risa Madden [facility] MANUEL (generalized anxiety disorder) (Primary Dx) Discharge Disposition: Discharged to home or Selfcare 08/19/2025 Travel 08/05/2025 12:00 PM CDT Outpatient Clinic Visit [facility] [address] [place] [address] Risa Madden LC[facility] MANUEL (generalized anxiety disorder) (Primary Dx); Chronic post-traumatic stress disorder (PTSD) Discharge Disposition: Discharged to home or Selfcare 08/05/2025 Travel 07/21/2025 3:00 PM CDT Outpatient Clinic Visit [facility] [address] [place] [address] Risa Madden, [facility] MANUEL (generalized anxiety disorder) (Primary Dx); Chronic [...] Comments Blood Pressure 136/88 09/03/2020 3:45 AM STEP DOWN SPECIALIST Pulse 91 09/03/2020 3:45 AM STEP DOWN SPECIALIST Temperature 37.6 C (99.7 F) 09/03/2020 2:33 AM STEP DOWN SPECIALIST Respiratory Rate 18 09/03/2020 3:45 AM STEP DOWN SPECIALIST Oxygen Saturation 94% 09/03/2020 3:45 AM STEP DOWN SPECIALIST Inhaled Oxygen Concentration - - Weight 287 kg (632 lb 11.5 oz) 09/03/2020 2:33 A M STEP DOWN SPECIALIST Height 157.5 cm (5' 2) 09/03/2020 2:33 AM STEP DOWN SPECIALIST Body Mass Index 115.73 09/03/2020 2:33 AM STEP DOWN SPECIALIST Plan of Treatment Upcoming Encounters Date Type Department Care Team (Latest Contact Info) Description 09/10/2025 3:00 PM STEP DOWN SPECIALIST Outpatient Clinic Visit [facility] [address] [place] [address] Risa Madden [facility] [address] [facility] [place] [address] Discharge Disposition: Discharged to home or Selfcare [...] ANXIETY Anxiety On track( 025 6:00 PM STEP DOWN SPECIALIST) Yes Risa Madden LCPC Note: Move forward, know what to do with symptoms Gain more coping skills Goal/Objective: Improve coping. Anticipated Time Frame for Goal Completion: 6 months Goal Reviewed with: patient Readiness to change: Ready to change Department associated with goal: [facility] Steps to achieve [...] and depression. Insurance MEDICAID [place] Care Teams Coat Baster Relationship Specialty Start Date End Date Provider, None MD PCP - General 07/11/19
[2025-09-06 21:28] LABS: Hematocrit 43.3 % (37.0-47.0); Hemoglobin 14.3 g/dL (12.0-15.0); Immature Granulocyte Percent A 0.4 % (0-0.5); Lymphocytes Absolute Auto 3.39 K/mm3 (0.9-3.2); Mean Corpuscular HGB Conc 33.0 g/dl (32-36); Mean Corpuscular Hemoglobin 28.7 pg (26-34); Mean Corpuscular Volume 86.8 fl (80-100); Nucleated Red Blood Cells Absolute Auto 0.000 K/mm3 (0.0-0.012); Nucleated Red Blood Cells Perc 0.0 % (0.0-0.2); Platelet Count Result 373 k/mm3 (150-375); Red Blood Count 4.99 M/mm3 (4.2-5.4); White Blood Count 10.9 K/mm3 (4.5-10.0)
[2025-09-06 21:40] LABS: Alanine Aminotransferase 34 U/L (6-35); Albumin Level 4.6 g/dL (3.5-5.1); Alkaline Phosphatase 79 U/L (38-126); Anion Gap 10 mmol/L (4-12); Aspartate Amino Transferase 46 U/L (14-36); Bilirubin,Total 0.3 mg/dL (0.2-1.3); Blood Urea Nitrogen 14 mg/dL (7-17); Calcium 9.3 mg/dL (8.4-10.2); Carbon Dioxide 26 mmol/L (22-30); Chloride 102 mmol/L (98-107); Estimated CRCL calculation 134 ml/min; Estimated Glomerular Filt Rate > 60; Glucose 101 mg/dL (65-110); Lipase 101 U/L (23-300); Potassium 3.8 mmol/L (3.4-5.0); Sodium 138 mmol/L (137-145); Total Protein 8.1 g/dL (6.3-8.2)
--- NOTE | 2025-09-06 22:50 | PC.NURSE ---
Pt taken to CT
--- NOTE | 2025-09-06 22:59 | PC.NURSE ---
Pt returned from CT
[2025-09-07] MEDS: FLUCONAZOLE 150 MG TABLET PO (00:39)
--- NOTE | 2025-09-07 00:45 | PC.NURSE ---
Pt mother recording this RN, security made aware and accompanied RN for medication administration.
--- NOTE | 2025-09-07 00:48 | PC.NURSE ---
Pt leaving against medical advice, MD at bedside explained risk of leaving include worsening in condition, and . Pt verbalized understanding, AMA form signed. IV D/C at this time.
[2025-09-08 11:49] LABS: BEDSIDEPREGUCG Negative (Negative)
== END 2025-09-07 00:42 | disposition left against medical advice (07) ==
PROVIDERS: Emergency Provider Physician Assistant; PCP Family Medicine
DX: R10.31 Right lower quadrant pain (principal)
CPT/HCPCS: 36415; 74177; 80053; 81001; 81025; 83690; 85025; 87086; 99284; A9270; Q9967